=== PATIENT | male | born 1935 | race Caucasian/White ===

== ENCOUNTER 2023-02-23 14:53 | Inpatient (IN) | payer MEDICARE, SELFPAY ==
--- OUTSIDE RECORDS SUMMARY | 2023-02-23 14:55 | XMS_ITS | Continuity of Care Document ---
Author Name Unknown Organization [facility] Address [address] [facility], 3r d Floor, [address] [place] [id number]- Care Team Providers Care Shoulder Puncher Name Role Phone Virginia Snyder Primary Care Physician Encounter [facility] [place] Date(s): 09/21/19 - 01/19/20 [facility] [address], 3[address] Floor, [address] [place] [id number]- [facility] Attending Physician: Kerrie GUNDERSON, Lynn Yu Admitting Physician: Kerrie GUNDERSON, Lynn Yu Referring Physician: Virginia Snyder Allergies, Adverse Reactions, Alerts Substance Reaction Severity Status sulfonamides 1 full blown body rash Activ e Neurontin 2 rash Active Dilaudid 3 vomits violently Active oxyCODONE 4 nasty personality Active 1Rash/Hives/Itch 2 Rash 3 projectile vomiting 4 Personality change Medications amLODIPine 5 mg oral tablet 5 mg, 1, tablet, By Mouth, Daily, # 30 tablet, Refills 0, Maintenance, 03/09/19 22:27:31 EDT Start Date: 03/09/19 Status: Ordered aspirin 81 mg oral delayed release tablet 81 mg, 1, tablet, By Mouth, Daily, # 30 tablet, Refills 0, Maintenance, 03/09/19 22:52:43 EDT Start Date: 03/09/19 Status: Ordered donepezil 5 mg oral tablet 5 mg, 1, tablet, By Mouth, Daily at bedtime, # 30 tablet, Refills 0, Maintenance, 03/09/19 22:27:21EDT Start Date: 03/09/19 Status: Ordered famotidine 20 mg oral tablet 20 mg, 1, tablet, By Mouth, 2 times a day, Refills 0, Maintenance, 06/10/19 10:55:29 EDT Start Date: 06/10/19 Status: Ordered losartan 100 mg oral tablet 1 tablet = 100 mg, By Mouth, Daily, Stop Lisinopril, # 90 tablet, 3 Refills, Maintenance, 06/10/19 11:47:27 EDT, Tablet Start Date: 06/10/19 Stop Date: 06/04/20 Status: Ordered Multivitamin Daily, 0 Refills, Maintenance, 06/10/19 10:54:46 EDT Start Date: 06/10/19 Status: Ordered Social History Social History Type Response Smoking Status Former smoker entered on: 02/25/16 Sex
--- OUTSIDE RECORDS SUMMARY | 2023-02-23 14:55 | XMS_ITS | Continuity of Care Document ---
Author Name Unknown Organization [facility] Address [address] [facility], 3r d Floor, [address] [place] [id number]- Care Team Providers Care Transistor Tester Name Role Phone Virginia Snyder Primary Care Physician Encounter [facility] [place] Date(s): 12/20/19 - 12/30/19 [facility] [address], 3[address], [address] [place] [id number]- [facility] Attending Physician: Boris Vera Admitting Physician: AdmBoris taylor Referring Physician: Admtr, ArYoselyn Allergies, Adverse Reactions, Alerts Substance Reaction Severity Status sulfonamides 1 full blown body rash Activ e oxyCODONE 2 nasty personality Active Neurontin 3 rash Active Dilaudid 4 vomits violently Active 1Rash/Hives/Itch 2 Personality change 3 Rash 4 projectile vomiting Medications amLODIPine 5 mg oral tablet 5 [...]
[2023-02-23 16:00] VITALS: BP 125/60; PULSE 68; RESP 18; TEMP 36.2; O2SAT 98; BMI 27.8
[2023-02-23 18:00] VITALS: BP 109/56; PULSE 62; RESP 16; TEMP 36.6; O2SAT 98
--- NOTE | 2023-02-23 18:28 | PC.NURSE ---
This is the 1st admission for this 88 y.o. male to this [facility]. Pt arrived on unit at 1500 and placed on 5 min safety checks. 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 Nurse to nurse report done with [facility] ED prior to admission, transferred from [facility]. Denies substance issues, per crisis intake has not had etoh/cigarettes x 50 years. No other substances reported. Refused tox screen at [facility]. Receives meds for HTN and states manages this. Restless during admission process, ambulating around treatment room, rubbing counter, trying to open cabinets and crash cart drawers. Responded well to redirection. Later in shift observed attempting to open door at end of dowell by shoving on it. Informed door was broken and moved away from door. Denies SI/HI, denies Ah/VH. Able to express needs well, confusion noted due to Alzheimer's Disease. Denies issues with sleep/appetite. notified of admission here and stated she was not informed by [facility] that pt was being placed here. Pt wears brace on left foot/ankle to assist with ambulation which was ok'd by clinical coordinator; Dr Reaves informed. Pt not utilizing at present time and states he is able to ambulate without.
[2023-02-23] MEDS: Memantine HCl 10 MG TABLET PO (20:48)
[2023-02-23] MEDS: Donepezil HCl 10 MG TABLET PO (20:48)
[2023-02-23] MEDS: traZODone HCL 50 MG TABLET PO (20:49)
[2023-02-23] MEDS: risperiDONE 0.25 MG TABLET PO (20:50)
[2023-02-23] MEDS: Mirtazapine 7.5 MG TABLET PO (20:50)
[2023-02-23] MEDS: QUEtiapine Fumarate 25 MG TABLET 12.5 MG PO (20:55)
[2023-02-24 08:08] VITALS: BP 116/68; PULSE 66; RESP 18; TEMP 36.2; O2SAT 97
[2023-02-24 08:40] LABS: Estimated Average Glucose 97 mg/dL
--- NOTE | 2023-02-24 08:41 | P.HPPS_ITS ---
[facility] Date of Service: 02/24/23 Chief Complaint: F02.81 Sources of Information: patient interviewed, chart reviewed and crisis/core team assessment reviewed Additional Sources of Information: Janice Rao () [phone] [facility] Subjective Notes: Loya Warning and Conditional Voluntary Narrative: Mr. Rao is a 88 year-old male with hx of dementia who was brought to [facility] ED due to increase agitation, innappropiate sexual remarks to neighbor, masturbating in different parts of the home. Per ED note, pt lives with his . In the ED, pt denied suicidal or homicidal ideation. No signs of psychosis. On the unit, pt not oriented to month, situation or year. He reports he is not sure how long he has been here. He reports my put me here. He asks if he can go home soon. Pt explained concerns in terms of impulsive, sexually inappropriate behaviors and combative behaviors at home. He denies SI/HI. He asks again if he is going home today. Further collateral information from who spoke with SOPHIA Reveles- reports pt with memory/cog impairments since 2014. Most recent disinhibited behaviors such sexually inappropriate behaviors towards neighbor, masturbating around the house, sexually inappropriate comments to granddaughter and increasingly more combative. Past Psychiatric History: Inpatient: none prior OP: none Past medication trials: seroquel, sertraline Medical Evaluation Reviewed: Yes EKG on 02/21/2023- Normal sinus rhythm, Qtc 398 ms. CBC unremarkable. CMP- Na 134; K 4.4; BUN 16; Cr 1.1; est. creatinine clearance 46.81. UA neg for leukocytes, glucose, protein [facility] Medical History (Updated 02/24/23 @ 16:03 by Sayra Thorne) Depression Social History: Mikel has been for more than 60 years. Lives in [place] with . They have 2 sons and 2 daughters. Eugenio is a , served in the [employer]. Remote hx of alcohol use but not in several decades per ED notes. Diagnostics Vital Signs (24Hr): Vital Signs - 24 hr 02/23/23 16:00 02/23/23 18:00 02/24/23 08:08 Temperature 97.1 F 97.9 F 97.2 F Pulse Rate 68 62 66 Respiratory Rate 18 16 18 Blood Pressure 125/60 109/56 L 116/68 Pulse Oximetry 98 98 97 Oxygen Delivery Method Room Air Room Air Room Air BMI result Body Mass Index 27.8 Labs 02/24/23 08:14 Labs: Laboratory Results - last 48 hr 02/24/23 08:14 Estimat Average Glucose 97 Hemoglobin A1c % 5.0 Meds/Allergies Meds Home Medications Medication Instructions Recorded Confirmed Type amlodipine 10 mg tablet 10 mg PO DAILY 02/23/23 02/23/23 History donepezil 10 mg tablet 10 mg PO BEDTIME 02/23/23 02/23/23 History losartan 100 mg tablet 100 mg PO DAILY 02/23/23 02/23/23 History memantine 10 mg tablet 10 mg PO BID 02/23/23 02/23/23 History mirtazapine 7.5 mg tablet 7.5 mg PO BEDTIME 02/23/23 02/23/23 History quetiapine 25 mg tablet 12.5 mg PO BID 02/23/23 02/23/23 History risperidone 0.25 mg tablet 0.125 mg PO BID 02/23/23 02/23/23 History risperidone 0.25 mg tablet 0.25 mg PO BEDTIME 02/23/23 02/23/23 History sertraline 50 mg tablet 75 mg PO DAILY 02/23/23 02/23/23 History trazodone 50 mg tablet 50 mg PO BEDTIME 02/23/23 02/23/23 History Allergies Allergies Allergy/AdvReac Type Severity Reaction Status Date / Time Sulfa (Sulfonamide Allergy Severe Anaphylaxis Verified 02/23/23 15:04 Antibiotics) gabapentin [From Neurontin] Allergy Intermediate Rash Verified 02/23/23 15:04 oxycodone AdvReac Severe delirum Verified 02/23/23 15:04 hydromorphone [From Dilaudid] AdvReac Intermediate Vomiting Verified 02/23/23 15:04 Mental Status Exam Mental Status Exam Narrative: Appearance: casually groomed, good hygiene, in NAD Behavior: irritable at times asking to go home Psychomotor: some increased agitation as pt request to leave hospital Speech: clear, normal rate/rhythm/volume, spontaneous TP: goal oriented, wanting to go home TC: no over psychosis or delusions, wanting to go home Mood: fine Affect: irritable SI: denies HI: denies VH/AH: none Delusions: none Memory/cog: alert, not oriented to situation, month, date or year. pending moca Assessment & Plan Assessment & Plan (1) Major neurocognitive disorder due to multiple etiologies with behavioral disturbance: Status: Acute Code(s): F02.818 - Dementia in other diseases classified elsewhere, unspecified severity, with other behavioral disturbance Plan Mr. Rao is a 88 year-old male with hx of dementia of multiple etiologies who was brought to [facility] due to increase combative behaviors, innapropriate sexual advances to neighbor. In the ED, utox is negative. UA not indicative of infection. CBC and CMP grossly unremarkable. Pt not oriented to situation, month, date. He is able to recognize that this is hospital but does not know why he is here. is healthcare proxy- which will be bring copy of HCP form. PLAN 1. Admit to S1, CV, 15 minutes checks for safety 2. Start mood stbailizer for impulsive, disinhibited sexual behaviors- will try trileptal. 3. continue seroquel scheduled as well as prn for agitation 4. aftercare planning 5.obtain collateral information. Patient educated on: diagnosis Reason for continued inpatient stay Substantial Risk for: harm to others and inability to function Statement Statement: I have reviewed the history and physical and performed a pertinent examination on my patient. No changes have occurred unless specified. If the History and Physical was not performed prior to admission, the Hospitalist's service will be consulted for completing the admission physical. Time Spent With Patient Time: Total time managing care of this patient today ____ minutes.
[2023-02-24 09:08] LABS: Alanine Aminotransferase 17 U/L (0-40); Albumin Level 3.8 g/dL (3.5-5.0); Alkaline Phosphatase 87 U/L (39-117); Anion Gap 13 (12-20); Aspartate Amino Transferase 21 U/L (5-37); Bilirubin Total 1.2 mg/dL (0.0-1.0); Blood Urea Nitrogen 20 mg/dL (9-16); Calcium 9.4 mg/dL (8.4-10.2); Carbon Dioxide 23 mmol/L (22-29); Chloride 103 mmol/L (96-108); Cholesterol 138 mg/dL; Creatinine Clr Calc Pharmacy 47.5; Estimated Glomerular Filt Rate 59; Glucose Fasting 87 mg/dL (60-99); HDL Cholesterol 30 mg/dL; LDL Cholesterol Calculated 92 mg/dl; Potassium 4.5 mmol/L (3.3-5.1); Sodium 134 mmol/L (135-145); Triglycerides 84 mg/dL
[2023-02-24 09:25] LABS: Thyroid Stimulating Hormone 1.14 uIU/mL (0.32-4.0)
[2023-02-24 09:26] LABS: Folate 13.7 ng/mL (> or = 4.0); Vitamin B12 755 pg/mL (200-900)
[2023-02-24] MEDS: risperiDONE 0.25 MG TABLET 0.125 MG PO ×2 (09:30→11:43)
[2023-02-24] MEDS: QUEtiapine Fumarate 25 MG TABLET 12.5 MG PO ×2 (09:31→20:10)
[2023-02-24] MEDS: Memantine HCl 10 MG TABLET PO ×2 (09:31→20:10)
[2023-02-24] MEDS: amLODIPine Besylate 10 MG TABLET PO (09:32)
[2023-02-24] MEDS: Losartan Potassium 50 MG TABLET 100 MG PO (09:33)
[2023-02-24] MEDS: Sertraline HCL 25 MG TABLET 75 MG PO (09:33)
--- NOTE | 2023-02-24 10:22 | P.CONHOSP_ITS ---
History of Present Illness Data of Consult Service Date: 02/24/23 Primary Care Provider: HAMMAD Hess HPI 88-year-old man with history of hypertension, depression admitted to [facility] for mental health care. Patient's vital signs are stable, labs within acceptable limits. He has no acute medical complaints at this time Review of Systems Review of Systems: Denies any recent fever chills or decrease in appetite respiratory denies any shortness of breath coverage production cardiovascular denies chest pain gastrointestinal denies any dysphagia abdominal pain nausea vomiting or diarrhea genitourinary denies any dysuria frequency or hematuria musculoskeletal denies any joint pain or swelling neuropsych denies any weakness or seizures all other systems reviewed are negative [facility] Medical History (Updated 02/24/23 @ 11:13 by Lanette Sy NP) Depression Social History Household Members: Spouse and Other Household Members Other:: son Housing: House Do you presently have visiting nurse or other home services: No Patient Tobacco Use Status: Former Tobacco user Tobacco use type: Cigarette Smoked in Last 30 Days: No e-Cigarette/Vaping Use: Never Used Patient Interested in Nicotine Replacement: No Patient Given Instructions on How to Stop Smoking: No Second Hand Smoke Exposure: No Use of substances other than those prescribed or required for medical reasons: No Any prior treatment program specific to substance use: No Have you been hit, kicked, punched, or otherwise hurt by someone within the past year? If so, by whom?: No Do you feel safe in your current relationship?: Yes Is there a partner from a previous relationship who is making you feel unsafe now?: No Are you made to feel afraid or neglected: No Advance Directives: No Advance Directives Information Provided: No Do you have thoughts of harming others: None Do you have a plan to hurt others: No Plan Recently lost weight without trying: No Eating poorly because of decreased appetite: No Nutrition Risks: No Nutritional Risk Poor oral hygiene: No Meds Allergies Allergy/AdvReac Type Severity Reaction Status Date / Time Sulfa (Sulfonamide Allergy Severe Anaphylaxis Verified 02/23/23 15:04 Antibiotics) gabapentin [From Neurontin] Allergy Intermediate Rash Verified 02/23/23 15:04 oxycodone AdvReac Severe delirum Verified 02/23/23 15:04 hydromorphone [From Dilaudid] AdvReac Intermediate Vomiting Verified 02/23/23 15:04 Active Medications: Current Medications Acetaminophen (Acetaminophen 325 Mg Tablet) 650 mg PO Q6H PRN PRN Reason: Headache/Pain Mild Scale (1-3) Al Hydroxide/Mg Hydroxide (Magnesium Hydrox/Alum Hydrox 30 Ml Oral.Susp) 30 ml PO Q6H PRN PRN Reason: Heartburn/Nausea Amlodipine Besylate (Amlodipine Besylate 10 Mg Tablet) 10 mg PO DAILY [facility]; Protocol Last Admin: 02/24/23 09:32 Dose: 10 mg Donepezil HCl (Donepezil Hcl 10 Mg Tablet) 10 mg PO BEDTIME [facility] Last Admin: 02/23/23 20:48 Dose: 10 mg Hydroxyzine HCl (Hydroxyzine Hcl 25 Mg Tablet) 25 mg PO Q6H PRN PRN Reason: Anxiety Losartan Potassium (Losartan Potassium 50 Mg Tablet) 100 mg PO DAILY [facility]; Protocol Last Admin: 02/24/23 09:33 Dose: 100 mg Magnesium Hydroxide (Milk Of Magnesia 30 Ml Oral.Susp) 30 ml PO DAILY PRN PRN Reason: Constipation Memantine (Memantine Hcl 10 Mg Tablet) 10 mg PO BID [facility] Last Admin: 02/24/23 09:31 Dose: 10 mg Mirtazapine (Mirtazapine 7.5 Mg Tablet) 7.5 mg PO BEDTIME [facility] Last Admin: 02/23/23 20:50 Dose: 7.5 mg Quetiapine Fumarate (Quetiapine Fumarate 25 Mg Tablet) 25 mg PO Q6H PRN PRN Reason: agitation Quetiapine Fumarate (Quetiapine Fumarate 25 Mg Tablet) 12.5 mg PO BID [facility] Last Admin: 02/24/23 09:31 Dose: 12.5 mg Risperidone (Risperidone 0.25 Mg Tablet) 0.125 mg PO BID@0800,1200 [facility] Last Admin: 02/24/23 09:30 Dose: 0.125 mg Risperidone (Risperidone 0.25 Mg Tablet) 0.25 mg PO BEDTIME [facility] Last Admin: 02/23/23 20:50 Dose: 0.25 mg Sertraline HCl (Sertraline Hcl 25 Mg Tablet) 75 mg PO DAILY [facility] Last Admin: 02/24/23 09:33 Dose: 75 mg Trazodone HCl (Trazodone Hcl 50 Mg Tablet) 50 mg PO BEDTIME PRN PRN Reason: Insomnia Trazodone HCl (Trazodone Hcl 50 Mg Tablet) 50 mg PO BEDTIME [facility] Last Admin: 02/23/23 20:49 Dose: 50 mg Home Medications Medication Instructions Recorded Confirmed Last Taken Type amlodipine 10 mg tablet 10 mg PO DAILY 02/23/23 02/23/23 Unknown History donepezil 10 mg tablet 10 mg PO BEDTIME 02/23/23 02/23/23 Unknown History losartan 100 mg tablet 100 mg PO DAILY 02/23/23 02/23/23 Unknown History memantine 10 mg tablet 10 mg PO BID 02/23/23 02/23/23 Unknown History mirtazapine 7.5 mg tablet 7.5 mg PO BEDTIME 02/23/23 02/23/23 Unknown History quetiapine 25 mg tablet 12.5 mg PO BID 02/23/23 02/23/23 Unknown History risperidone 0.25 mg tablet 0.125 mg PO BID 02/23/23 02/23/23 Unknown History risperidone 0.25 mg tablet 0.25 mg PO BEDTIME 02/23/23 02/23/23 Unknown History sertraline 50 mg tablet 75 mg PO DAILY 02/23/23 02/23/23 Unknown History trazodone 50 mg tablet 50 mg PO BEDTIME 02/23/23 02/23/23 Unknown History Physical Exam 2 Vital Signs and Narrative: Vital Signs: Last Vital Signs Temp 97.2 F 02/24/23 08:08 Pulse 66 02/24/23 08:08 Resp 18 02/24/23 08:08 BP 116/68 02/24/23 08:08 Pulse Ox 97 02/24/23 08:08 O2 Del Method Room Air 02/24/23 08:08 BMI result Body Mass Index 27.8 Appearing in no acute distress head is normocephalic atraumatic eyes pupils are PERRLA sclera is anicteric mouth throat mucous membranes are intact and moist neck is supple no lymphadenopathy, no JVD noted lung sounds are clear to auscultation heart regular rate rhythm, clear S1, S2 positive bowel sounds, abdomen is soft, nontender neuro patient is alert x3, no focal deficits Cranial nerves 2-12 are grossly intact without focal deficits Results Labs 02/24/23 08:14 Labs: Laboratory Results - last 24 hr 02/24/23 02/24/23 02/24/23 08:14 08:14 08:14 Anion Gap 13 Estim Creat Clear Calc 47.5 Estimated GFR 59 Fasting Glucose 87 Estimat Average Glucose 97 Hemoglobin A1c % 5.0 Calcium 9.4 Total Bilirubin 1.2 H AST 21 ALT 17 Alkaline Phosphatase 87 Total Protein 7.0 Albumin 3.8 Triglycerides 84 Cholesterol 138 LDL Cholesterol, Calc 92 HDL Cholesterol 30 Vitamin B12 755 Folate 13.7 TSH 1.14 Assessment and Plan (1) H/O: HTN (hypertension): Status: Acute Plan 88-year-old man admitted to [facility] for mental health treatment Mental Health Management as per psychiatric team Hypertension Continue home medications Monitor blood pressure Patient has no acute medical complaints at this time Time Spent With Patient Time: Total time managing care of this patient today ____ minutes.
[2023-02-24] MEDS: OXcarbazepine 300 MG TABLET PO ×2 (14:33→20:11)
[2023-02-24 19:30] VITALS: BP 107/53; PULSE 62; RESP 16; TEMP 36.5; O2SAT 96
[2023-02-24] MEDS: Donepezil HCl 10 MG TABLET PO (20:10)
[2023-02-24] MEDS: traZODone HCL 50 MG TABLET PO (20:10)
[2023-02-24] MEDS: Mirtazapine 7.5 MG TABLET PO (20:10)
[2023-02-25 08:15] VITALS: BP 122/59; PULSE 70; RESP 18; TEMP 35.9; O2SAT 99
[2023-02-25] MEDS: QUEtiapine Fumarate 25 MG TABLET 12.5 MG PO (08:21)
[2023-02-25] MEDS: amLODIPine Besylate 10 MG TABLET PO (08:22)
[2023-02-25] MEDS: Memantine HCl 10 MG TABLET PO ×2 (08:22→20:35)
[2023-02-25] MEDS: OXcarbazepine 300 MG TABLET PO ×2 (08:22→20:35)
[2023-02-25] MEDS: Losartan Potassium 50 MG TABLET 100 MG PO (08:22)
[2023-02-25] MEDS: Sertraline HCL 25 MG TABLET 75 MG PO (08:23)
[2023-02-25] MEDS: QUEtiapine Fumarate 25 MG TABLET PO ×2 (14:40→20:34)
--- NOTE | 2023-02-25 16:41 | P.PNPSI_ITS ---
Subjective Subjective Date of Service: 02/25/23 Reason For Visit: F02.81 Subjective Notes: Conditional Voluntary Interim History: Pt slept through the night. Pt was up, visible most of the morning. Innapropriate exposure to female peer. Pt not oriented to place or situation. Pt denies any pain or physical concerns. he denies SI/HI. Medication Compliance: Yes Review of Systems Review of Systems Denies any recent fever chills or decrease in appetite respiratory denies any shortness of breath coverage production cardiovascular denies chest pain gastrointestinal denies any dysphagia abdominal pain nausea vomiting or diarrhea genitourinary denies any dysuria frequency or hematuria musculoskeletal denies any joint pain or swelling neuropsych denies any weakness or seizures all other systems reviewed are negative Yes Unobtainable due to mental status Mental Status Exam Mental Status Exam Narrative: Appearance: casually groomed, good hygiene, in NAD Behavior: irritable at times asking to go home Psychomotor: some increased agitation as pt request to leave hospital Speech: clear, normal rate/rhythm/volume, spontaneous TP: goal oriented, wanting to go home TC: no over psychosis or delusions, wanting to go home Mood: fine Affect: irritable SI: denies HI: denies VH/AH: none Delusions: none Memory/cog: alert, not oriented to situation, month, date or year. pending moca Diagnostics Vital Signs (24Hr): Vital Signs - 24 hr 02/24/23 19:30 02/25/23 08:15 Temperature 97.7 F 96.6 F L Pulse Rate 62 70 Respiratory Rate 16 18 Blood Pressure 107/53 L 122/59 L Pulse Oximetry 96 99 Oxygen Delivery Method Room Air Room Air BMI result Body Mass Index 27.8 Labs 02/24/23 08:14 Labs: Laboratory Results - last 48 hr 02/24/23 02/24/23 02/24/23 08:14 08:14 08:14 Sodium 134 L Potassium 4.5 Chloride 103 Carbon Dioxide 23 Anion Gap 13 BUN 20 H Creatinine 1.17 Estim Creat Clear Calc 47.5 Estimated GFR 59 Fasting Glucose 87 Estimat Average Glucose 97 Hemoglobin A1c % 5.0 Calcium 9.4 Total Bilirubin 1.2 H AST 21 ALT 17 Alkaline Phosphatase 87 Total Protein 7.0 Albumin 3.8 Triglycerides 84 Cholesterol 138 LDL Cholesterol, Calc 92 HDL Cholesterol 30 Vitamin B12 755 Folate 13.7 TSH 1.14 Medications Medications Current Medications Acetaminophen (Acetaminophen 325 Mg Tablet) 650 mg PO Q6H PRN PRN Reason: Headache/Pain Mild Scale (1-3) Al Hydroxide/Mg Hydroxide (Magnesium Hydrox/Alum Hydrox 30 Ml Oral.Susp) 30 ml PO Q6H PRN PRN Reason: Heartburn/Nausea Amlodipine Besylate (Amlodipine Besylate 10 Mg Tablet) 10 mg PO DAILY [facility]; Protocol Last Admin: 02/25/23 08:22 Dose: 10 mg Donepezil HCl (Donepezil Hcl 10 Mg Tablet) 10 mg PO BEDTIME [facility] Last Admin: 02/24/23 20:10 Dose: 10 mg Hydroxyzine HCl (Hydroxyzine Hcl 25 Mg Tablet) 25 mg PO Q6H PRN PRN Reason: Anxiety Losartan Potassium (Losartan Potassium 50 Mg Tablet) 100 mg PO DAILY [facility]; Protocol Last Admin: 02/25/23 08:22 Dose: 100 mg Magnesium Hydroxide (Milk Of Magnesia 30 Ml Oral.Susp) 30 ml PO DAILY PRN PRN Reason: Constipation Memantine (Memantine Hcl 10 Mg Tablet) 10 mg PO BID [facility] Last Admin: 02/25/23 08:22 Dose: 10 mg Mirtazapine (Mirtazapine 7.5 Mg Tablet) 7.5 mg PO BEDTIME [facility] Last Admin: 02/24/23 20:10 Dose: 7.5 mg Oxcarbazepine (Oxcarbazepine 300 Mg Tablet) 300 mg PO BID [facility] Last Admin: 02/25/23 08:22 Dose: 300 mg Quetiapine Fumarate (Quetiapine Fumarate 25 Mg Tablet) 25 mg PO Q6H PRN PRN Reason: agitation Quetiapine Fumarate (Quetiapine Fumarate 25 Mg Tablet) 25 mg PO TID [facility] Last Admin: 02/25/23 14:40 Dose: 25 mg Sertraline HCl (Sertraline Hcl 25 Mg Tablet) 75 mg PO DAILY [facility] Last Admin: 02/25/23 08:23 Dose: 75 mg Trazodone HCl (Trazodone Hcl 50 Mg Tablet) 50 mg PO BEDTIME PRN PRN Reason: Insomnia Trazodone HCl (Trazodone Hcl 50 Mg Tablet) 50 mg PO BEDTIME [facility] Last Admin: 02/24/23 20:10 Dose: 50 mg Allergies Allergies Allergy/AdvReac Type Severity Reaction Status Date / Time Sulfa (Sulfonamide Allergy Severe Anaphylaxis Verified 02/23/23 15:04 Antibiotics) gabapentin [From Neurontin] Allergy Intermediate Rash Verified 02/23/23 15:04 oxycodone AdvReac Severe delirum Verified 02/23/23 15:04 hydromorphone [From Dilaudid] AdvReac Intermediate Vomiting Verified 02/23/23 15:04 Assessment & Plan Assessment & Plan (1) Major neurocognitive disorder due to multiple etiologies with behavioral d isturbance: Status: Acute Code(s): F02.818 - Dementia in other diseases classified elsewhere, unspecified severity, with other behavioral disturbance Plan Mr. Rao is a 88 year-old male with hx of dementia of multiple etiologies who was brought to [facility] due to increase combative behaviors, innapropriate sexual advances to neighbor. In the ED, utox is negative. UA not indicative of infection. CBC and CMP grossly unremarkable. Pt not oriented to situation, month, date. He is able to recognize that this is hospital but does not know why he is here. is healthcare proxy- which will be bring copy of HCP form. PLAN 1. Admit to S1, CV, 15 minutes checks for safety 2. Start mood stbailizer for impulsive, disinhibited sexual behaviors- will try trileptal. 3. continue seroquel scheduled as well as prn for agitation 4. aftercare planning 5.obtain collateral information. 02/25- increase seroquel to 25mg po TID- monitor sedation, gait. continue trileptal- will check Na. Reason for continued inpatient stay Substantial Risk for: inability to function Time Spent With Patient Time: Total time managing care of this patient today ____ minutes.
[2023-02-25 18:00] VITALS: BP 120/57; PULSE 70; RESP 20; TEMP 36.1; O2SAT 98
[2023-02-25] MEDS: traZODone HCL 50 MG TABLET PO (20:34)
[2023-02-25] MEDS: Mirtazapine 7.5 MG TABLET PO (20:35)
[2023-02-25] MEDS: Donepezil HCl 10 MG TABLET PO (20:35)
[2023-02-26 07:00] VITALS: BMI 22.9
[2023-02-26 09:45] VITALS: BP 127/69; PULSE 65; RESP 18; TEMP 36.1; O2SAT 98
[2023-02-26] MEDS: Sertraline HCL 25 MG TABLET 75 MG PO (10:34)
[2023-02-26] MEDS: Memantine HCl 10 MG TABLET PO ×2 (10:35→20:46)
[2023-02-26] MEDS: Losartan Potassium 50 MG TABLET 100 MG PO (10:36)
[2023-02-26] MEDS: OXcarbazepine 300 MG TABLET PO ×2 (10:37→20:46)
[2023-02-26] MEDS: amLODIPine Besylate 10 MG TABLET PO (10:37)
[2023-02-26] MEDS: QUEtiapine Fumarate 25 MG TABLET PO ×3 (10:38→20:46)
--- NOTE | 2023-02-26 12:35 | HO.PSYCHPN ---
Subjective Subjective Date of Service: 02/26/23 Reason For Visit: F02.81 Subjective Notes: Conditional Voluntary Interim History: Per nursing, pt slept through the night. He has been taking medications as prescribed. 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 No attempts to touch or expose himself as he did yesterday to peer or in the community. Pt not oriented to place, situation. He has been more visible and has attended groups. No other behavioral concerns. Medication Compliance: Yes Side effects from medications: No Review of Systems Review of Systems Denies any recent fever chills or decrease in appetite respiratory denies any shortness of breath coverage production cardiovascular denies chest pain gastrointestinal denies any dysphagia abdominal pain nausea vomiting or diarrhea genitourinary denies any dysuria frequency or hematuria musculoskeletal denies any joint pain or swelling neuropsych denies any weakness or seizures all other systems reviewed are negative Yes Unobtainable due to mental status Mental Status Exam Mental Status Exam Narrative: Appearance: casually groomed, good hygiene, in NAD Behavior: irritable at times asking to go home Psychomotor: some increased agitation as pt request to leave hospital Speech: clear, normal rate/rhythm/volume, spontaneous TP: goal oriented, wanting to go home TC: no over psychosis or delusions, wanting to go home Mood: fine Affect: irritable SI: denies HI: denies VH/AH: none Delusions: none Memory/cog: alert, not oriented to situation, month, date or year. pending moca Diagnostics Vital Signs (24Hr): Vital Signs - 24 hr 02/25/23 18:00 02/26/23 09:45 Temperature 96.9 F 97 F Pulse Rate 70 65 Respiratory Rate 20 18 Blood Pressure 120/57 L 127/69 Pulse Oximetry 98 98 Oxygen Delivery Method Room Air Room Air BMI result Body Mass Index 22.9 Labs 02/24/23 08:14 Medications Medications Current Medications Acetaminophen (Acetaminophen 325 Mg Tablet) 650 mg PO Q6H PRN PRN Reason: Headache/Pain Mild Scale (1-3) Al Hydroxide/Mg Hydroxide (Magnesium Hydrox/Alum Hydrox 30 Ml Oral.Susp) 30 ml PO Q6H PRN PRN Reason: Heartburn/Nausea Amlodipine Besylate (Amlodipine Besylate 10 Mg Tablet) 10 mg PO DAILY [facility]; Protocol Last Admin: 02/26/23 10:37 Dose: 10 mg Donepezil HCl (Donepezil Hcl 10 Mg Tablet) 10 mg PO BEDTIME [facility] Last Admin: 02/25/23 20:35 Dose: 10 mg Hydroxyzine HCl (Hydroxyzine Hcl 25 Mg Tablet) 25 mg PO Q6H PRN PRN Reason: Anxiety Losartan Potassium (Losartan Potassium 50 Mg Tablet) 100 mg PO DAILY [facility]; Protocol Last Admin: 02/26/23 10:36 Dose: 100 mg Magnesium Hydroxide (Milk Of Magnesia 30 Ml Oral.Susp) 30 ml PO DAILY PRN PRN Reason: Constipation Memantine (Memantine Hcl 10 Mg Tablet) 10 mg PO BID [facility] Last Admin: 02/26/23 10:35 Dose: 10 mg Mirtazapine (Mirtazapine 7.5 Mg Tablet) 7.5 mg PO BEDTIME [facility] Last Admin: 02/25/23 20:35 Dose: 7.5 mg Oxcarbazepine (Oxcarbazepine 300 Mg Tablet) 300 mg PO BID [facility] Last Admin: 02/26/23 10:37 Dose: 300 mg Quetiapine Fumarate (Quetiapine Fumarate 25 Mg Tablet) 25 mg PO Q6H PRN PRN Reason: agitation Quetiapine Fumarate (Quetiapine Fumarate 25 Mg Tablet) 25 mg PO TID [facility] Last Admin: 02/26/23 10:38 Dose: 25 mg Sertraline HCl (Sertraline Hcl 25 Mg Tablet) 75 mg PO DAILY [facility] Last Admin: 02/26/23 10:34 Dose: 75 mg Trazodone HCl (Trazodone Hcl 50 Mg Tablet) 50 mg PO BEDTIME PRN PRN Reason: Insomnia Trazodone HCl (Trazodone Hcl 50 Mg Tablet) 50 mg PO BEDTIME [facility] Last Admin: 02/25/23 20:34 Dose: 50 mg Allergies Allergies Allergy/AdvReac Type Severity Reaction Status Date / Time Sulfa (Sulfonamide Allergy Severe Anaphylaxis Verified 02/23/23 15:04 Antibiotics) gabapentin [From Neurontin] Allergy Intermediate Rash Verified 02/23/23 15:04 oxycodone AdvReac Severe delirum Verified 02/23/23 15:04 hydromorphone [From Dilaudid] AdvReac Intermediate Vomiting Verified 02/23/23 15:04 Assessment & Plan Assessment & Plan (1) Major neurocognitive disorder due to multiple etiologies with behavioral disturbance: Status: Acute Code(s): F02.818 - Dementia in other diseases classified elsewhere, unspecified severity, with other behavioral disturbance Plan Mr. Rao is a 88 year-old male with hx of dementia of multiple etiologies who was brought to [facility] due to increase combative behaviors, innapropriate sexual advances to neighbor. In the ED, utox is negative. UA not indicative of infection. CBC and CMP grossly unremarkable. Pt not oriented to situation, month, date. He is able to recognize that this is hospital but does not know why he is here. is healthcare proxy- which will be bring copy of HCP form. PLAN 1. Admit to S1, CV, 15 minutes checks for safety 2. Start mood stbailizer for impulsive, disinhibited sexual behaviors- will try trileptal. 3. continue seroquel scheduled as well as prn for agitation 4. aftercare planning 5.obtain collateral information. 02/25- increase seroquel to 25mg po TID- monitor sedation, gait. continue trileptal- will check Na. 02/26 continue current medications, monitor for over sedation and therapeutic benefit. Patient educated on: diagnosis and medication risk/benefits Guardian/Caregiver educated on: diagnosis Informed Consent: understands Reason for continued inpatient stay Substantial Risk for: harm to others and inability to function Time Spent With Patient Time: Total time managing care of this patient today ___30_ minutes.
[2023-02-26 18:00] VITALS: BP 124/65; PULSE 71; RESP 18; TEMP 36.3; O2SAT 97
[2023-02-26] MEDS: traZODone HCL 50 MG TABLET PO (20:46)
[2023-02-26] MEDS: Donepezil HCl 10 MG TABLET PO (20:46)
[2023-02-26] MEDS: Mirtazapine 7.5 MG TABLET PO (20:46)
--- NOTE | 2023-02-27 05:06 | PC.NURSE ---
Patient in bed asleep at 23:00. Patient up OOB to the [facility]ieux for a glass of milk at 3 am. Denied insomnia or anxiety at that time. Abnormal gait noted. Patient ambulated back to bed with 1 standby assist and holding bedrail and slept the rest of the night without complaint.
[2023-02-27 07:30] VITALS: BP 176/73; PULSE 72; RESP 18; TEMP 36.5; O2SAT 99
[2023-02-27] MEDS: QUEtiapine Fumarate 25 MG TABLET PO ×3 (08:05→20:41)
[2023-02-27] MEDS: Sertraline HCL 25 MG TABLET 75 MG PO (08:05)
[2023-02-27] MEDS: Memantine HCl 10 MG TABLET PO ×2 (08:05→20:41)
[2023-02-27] MEDS: amLODIPine Besylate 10 MG TABLET PO (08:06)
[2023-02-27] MEDS: Losartan Potassium 50 MG TABLET 100 MG PO (08:06)
[2023-02-27] MEDS: OXcarbazepine 300 MG TABLET PO ×2 (08:32→20:40)
[2023-02-27 18:00] VITALS: BP 160/74; PULSE 64; RESP 16; TEMP 36.6; O2SAT 95
[2023-02-27] MEDS: Donepezil HCl 10 MG TABLET PO (20:39)
[2023-02-27] MEDS: Mirtazapine 7.5 MG TABLET PO (20:40)
[2023-02-27] MEDS: hydrOXYzine HCL 25 MG TABLET PO (20:41)
--- NOTE | 2023-02-27 22:05 | P.PNPSI_ITS ---
Subjective Subjective Date of Service: 02/27/23 Reason For Visit: F02.81 Subjective Notes: Conditional Voluntary Interim History: Pt reports he is doing well. He reports he is doing well. He denies any physical concerns. Less irritable and combative. Family meeting to discussed medication changes and treatment. Per nursing, no aggression or inappropriate behaviors with females. Medication Compliance: Yes Review of Systems Review of Systems Denies any recent fever chills or decrease in appetite respiratory denies any shortness of breath coverage production cardiovascular denies chest pain gastrointestinal denies any dysphagia abdominal pain nausea vomiting or diarrhea genitourinary denies any dysuria frequency or hematuria musculoskeletal denies any joint pain or swelling neuropsych denies any weakness or seizures all other systems reviewed are negative Yes Unobtainable due to mental status Mental Status Exam Mental Status Exam Narrative: Appearance: casually groomed, good hygiene, in NAD Behavior: irritable at times asking to go home Psychomotor: some increased agitation as pt request to leave hospital Speech: clear, normal rate/rhythm/volume, spontaneous TP: goal oriented, wanting to go home TC: no over psychosis or delusions, wanting to go home Mood: fine Affect: irritable SI: denies HI: denies VH/AH: none Delusions: none Memory/cog: alert, not oriented to situation, month, date or year. pending moca Diagnostics Vital Signs (24Hr): Vital Signs - 24 hr 02/27/23 07:30 Temperature 97.7 F Pulse Rate 72 Respiratory Rate 18 Blood Pressure 176/73 H Pulse Oximetry 99 Oxygen Delivery Method Room Air BMI result Body Mass Index 22.9 Labs 02/24/23 08:14 Medications Medications Current Medications Acetaminophen (Acetaminophen 325 Mg Tablet) 650 mg PO Q6H PRN PRN Reason: Headache/Pain Mild Scale (1-3) Al Hydroxide/Mg Hydroxide (Magnesium Hydrox/Alum Hydrox 30 Ml Oral.Susp) 30 ml PO Q6H PRN PRN Reason: Heartburn/Nausea Amlodipine Besylate (Amlodipine Besylate 10 Mg Tablet) 10 mg PO DAILY [facility]; Protocol Last Admin: 02/27/23 08:06 Dose: 10 mg Donepezil HCl (Donepezil Hcl 10 Mg Tablet) 10 mg PO BEDTIME [facility] Last Admin: 02/27/23 20:39 Dose: 10 mg Hydroxyzine HCl (Hydroxyzine Hcl 25 Mg Tablet) 25 mg PO Q6H PRN PRN Reason: Anxiety Last Admin: 02/27/23 20:41 Dose: 25 mg Losartan Potassium (Losartan Potassium 50 Mg Tablet) 100 mg PO DAILY [facility]; Protocol Last Admin: 02/27/23 08:06 Dose: 100 mg Magnesium Hydroxide (Milk Of Magnesia 30 Ml Oral.Susp) 30 ml PO DAILY PRN PRN Reason: Constipation Memantine (Memantine Hcl 10 Mg Tablet) 10 mg PO BID [facility] Last Admin: 02/27/23 20:41 Dose: 10 mg Mirtazapine (Mirtazapine 7.5 Mg Tablet) 7.5 mg PO BEDTIME [facility] Last Admin: 02/27/23 20:40 Dose: 7.5 mg Oxcarbazepine (Oxcarbazepine 300 Mg Tablet) 300 mg PO BID [facility] Last Admin: 02/27/23 20:40 Dose: 300 mg Quetiapine Fumarate (Quetiapine Fumarate 25 Mg Tablet) 25 mg PO Q6H PRN PRN Reason: agitation Quetiapine Fumarate (Quetiapine Fumarate 25 Mg Tablet) 25 mg PO TID [facility] Last Admin: 02/27/23 20:41 Dose: 25 mg Sertraline HCl (Sertraline Hcl 25 Mg Tablet) 75 mg PO DAILY [facility] Last Admin: 02/27/23 08:05 Dose: 75 mg Trazodone HCl (Trazodone Hcl 50 Mg Tablet) 50 mg PO BEDTIME PRN PRN Reason: Insomnia Trazodone HCl (Trazodone Hcl 50 Mg Tablet) 50 mg PO BEDTIME [facility] Last Admin: 02/26/23 20:46 Dose: 50 mg Allergies Allergies Allergy/AdvReac Type Severity Reaction Status Date / Time Sulfa (Sulfonamide Allergy Severe Anaphylaxis Verified 02/23/23 15:04 Antibiotics) gabapentin [From Neurontin] Allergy Intermediate Rash Verified 02/23/23 15:04 oxycodone AdvReac Severe delirum Verified 02/23/23 15:04 hydromorphone [From Dilaudid] AdvReac Intermediate Vomiting Verified 02/23/23 15:04 Assessment & Plan Assessment & Plan (1) Major neurocognitive disorder due to multiple etiologies with behavioral disturbance: Status: Acute Code(s): F02.818 - Dementia in other diseases classified elsewhere, unspecified severity, with other behavioral disturbance Plan Mr. Rao is a 88 year-old male with hx of dementia of multiple etiologies who was brought to [facility] due to increase combative behaviors, innapropriate sexual advances to neighbor. In the ED, utox is negative. UA not indicative of infection. CBC and CMP grossly unremarkable. Pt not oriented to situation, month, date. He is able to recognize that this is hospital but does not know why he is here. is healthcare proxy- which will be bring copy of HCP form. PLAN 1. Admit to S1, CV, 15 minutes checks for safety 2. Start mood stbailizer for impulsive, disinhibited sexual behaviors- will try trileptal. 3. continue seroquel scheduled as well as prn for agitation 4. aftercare planning 5.obtain collateral information. 02/25- increase seroquel to 25mg po TID- monitor sedation, gait. continue trileptal- will check Na. 02/26 continue current medications, monitor for over sedation and therapeutic benefit. 02/27 continue tx. can consider increasing seroquel to 50mg po TID. Reason for continued inpatient stay Substantial Risk for: inability to function Time Spent With Patient Time: Total time managing care of this patient today ____ minutes.
[2023-02-27] MEDS: traZODone HCL 50 MG TABLET PO (23:37)
[2023-02-28 08:22] VITALS: BP 158/72; PULSE 63; RESP 18; TEMP 36.4; O2SAT 97
[2023-02-28] MEDS: Sertraline HCL 25 MG TABLET 75 MG PO (09:07)
[2023-02-28] MEDS: Losartan Potassium 50 MG TABLET 100 MG PO (09:08)
[2023-02-28] MEDS: QUEtiapine Fumarate 25 MG TABLET PO ×3 (09:08→20:32)
[2023-02-28] MEDS: amLODIPine Besylate 10 MG TABLET PO (09:08)
[2023-02-28] MEDS: Memantine HCl 10 MG TABLET PO ×2 (09:08→20:31)
[2023-02-28] MEDS: OXcarbazepine 300 MG TABLET PO ×2 (09:09→20:32)
--- NOTE | 2023-02-28 11:40 | P.PNPSI_ITS ---
Subjective Subjective Date of Service: 02/28/23 Reason For Visit: F02.81 Interim History: Pt reports he is doing well. He is somewhat irritable, guarded and suspicious. Isolative. He reports he is doing well. He denies any physical concerns. No agitated episodes. Per nursing, no aggression or inappropriate behaviors with females. Review of Systems Review of Systems Denies any recent fever chills or decrease in appetite respiratory denies any shortness of breath coverage production cardiovascular denies chest pain gastrointestinal denies any dysphagia abdominal pain nausea vomiting or diarrhea genitourinary denies any dysuria frequency or hematuria musculoskeletal denies any joint pain or swelling neuropsych denies any weakness or seizures all other systems reviewed are negative Yes Unobtainable due to mental status Mental Status Exam Mental Status Exam Narrative: Appearance: casually groomed, good hygiene, in NAD Behavior: irritable at times asking to go home Psychomotor: some increased agitation as pt request to leave hospital Speech: clear, normal rate/rhythm/volume, spontaneous TP: goal oriented, wanting to go home TC: no over psychosis or delusions, wanting to go home Mood: fine Affect: irritable SI: denies HI: denies VH/AH: none Delusions: none Memory/cog: alert, not oriented to situation, month, date or year. pending moca Diagnostics Vital Signs (24Hr): Vital Signs - 24 hr 02/27/23 18:00 02/28/23 08:22 Temperature 97.9 F 97.6 F Pulse Rate 64 63 Respiratory Rate 16 18 Blood Pressure 160/74 H 158/72 H Pulse Oximetry 95 97 Oxygen Delivery Method Room Air Room Air BMI result Body Mass Index 22.9 Labs 02/24/23 08:14 Medications Medications Current Medications Acetaminophen (Acetaminophen 325 Mg Tablet) 650 mg PO Q6H PRN PRN Reason: Headache/Pain Mild Scale (1-3) Al Hydroxide/Mg Hydroxide (Magnesium Hydrox/Alum Hydrox 30 Ml Oral.Susp) 30 ml PO Q6H PRN PRN Reason: Heartburn/Nausea Amlodipine Besylate (Amlodipine Besylate 10 Mg Tablet) 10 mg PO DAILY [facility]; Protocol Last Admin: 02/28/23 09:08 Dose: 10 mg Donepezil HCl (Donepezil Hcl 10 Mg Tablet) 10 mg PO BEDTIME [facility] Last Admin: 02/27/23 20:39 Dose: 10 mg Hydroxyzine HCl (Hydroxyzine Hcl 25 Mg Tablet) 25 mg PO Q6H PRN PRN Reason: Anxiety Last Admin: 02/27/23 20:41 Dose: 25 mg Losartan Potassium (Losartan Potassium 50 Mg Tablet) 100 mg PO DAILY [facility]; Protocol Last Admin: 02/28/23 09:08 Dose: 100 mg Magnesium Hydroxide (Milk Of Magnesia 30 Ml Oral.Susp) 30 ml PO DAILY PRN PRN Reason: Constipation Memantine (Memantine Hcl 10 Mg Tablet) 10 mg PO BID [facility] Last Admin: 02/28/23 09:08 Dose: 10 mg Mirtazapine (Mirtazapine 7.5 Mg Tablet) 7.5 mg PO BEDTIME [facility] Last Admin: 02/27/23 20:40 Dose: 7.5 mg Oxcarbazepine (Oxcarbazepine 300 Mg Tablet) 300 mg PO BID [facility] Last Admin: 02/28/23 09:09 Dose: 300 mg Quetiapine Fumarate (Quetiapine Fumarate 25 Mg Tablet) 25 mg PO Q6H PRN PRN Reason: agitation Quetiapine Fumarate (Quetiapine Fumarate 25 Mg Tablet) 25 mg PO TID [facility] Last Admin: 02/28/23 09:08 Dose: 25 mg Sertraline HCl (Sertraline Hcl 25 Mg Tablet) 75 mg PO DAILY [facility] Last Admin: 02/28/23 09:07 Dose: 75 mg Trazodone HCl (Trazodone Hcl 50 Mg Tablet) 50 mg PO BEDTIME PRN PRN Reason: Insomnia Trazodone HCl (Trazodone Hcl 50 Mg Tablet) 50 mg PO BEDTIME [facility] Last Admin: 02/27/23 23:37 Dose: 50 mg Allergies Allergies Allergy/AdvReac Type Severity Reaction Status Date / Time Sulfa (Sulfonamide Allergy Severe Anaphylaxis Verified 02/23/23 15:04 Antibiotics) gabapentin [From Neurontin] Allergy Intermediate Rash Verified 02/23/23 15:04 oxycodone AdvReac Severe delirum Verified 02/23/23 15:04 hydromorphone [From Dilaudid] AdvReac Intermediate Vomiting Verified 02/23/23 15:04 Assessment & Plan Assessment & Plan (1) Major neurocognitive disorder due to multiple etiologies with behavioral disturbance: Status: Acute Code(s): F02.818 - Dementia in other diseases classified elsewhere, unspecified severity, with other behavioral disturbance Plan Mr. Rao is a 88 year-old male with hx of dementia of multiple etiologies who was brought to [facility] due to increase combative behaviors, innapropriate sexual advances to neighbor. In the ED, utox is negative. UA not indicative of infection. CBC and CMP grossly unremarkable. Pt not oriented to situation, month, date. He is able to recognize that this is hospital but does not know why he is here. is healthcare proxy- which will be bring copy of HCP form. PLAN 1. Admit to S1, CV, 15 minutes checks for safety 2. Start mood stbailizer for impulsive, disinhibited sexual behaviors- will try trileptal. 3. continue seroquel scheduled as well as prn for agitation 4. aftercare planning 5.obtain collateral information. 02/25- increase seroquel to 25mg po TID- monitor sedation, gait. continue trileptal- will check Na. 02/26 continue current medications, monitor for over sedation and therapeutic benefit. 02/27 continue tx. can consider increasing seroquel to 50mg po TID. 02/28: Consider increase Seroquel. Reason for continued inpatient stay Substantial Risk for: harm to others, inability to function and rapid decompensation Time Spent With Patient Time: Total time managing care of this patient today ____ minutes.
[2023-02-28 18:00] VITALS: BP 155/69; PULSE 67; RESP 20; TEMP 36.2; O2SAT 98
[2023-02-28] MEDS: Mirtazapine 7.5 MG TABLET PO (20:31)
[2023-02-28] MEDS: Donepezil HCl 10 MG TABLET PO (20:31)
[2023-02-28] MEDS: traZODone HCL 50 MG TABLET PO (20:32)
[2023-03-01 08:32] VITALS: BP 118/58; PULSE 61; RESP 18; TEMP 36.3; O2SAT 96
[2023-03-01] MEDS: amLODIPine Besylate 10 MG TABLET PO (09:06)
[2023-03-01] MEDS: Losartan Potassium 50 MG TABLET 100 MG PO (09:06)
[2023-03-01] MEDS: Memantine HCl 10 MG TABLET PO ×2 (09:07→20:06)
[2023-03-01] MEDS: Sertraline HCL 25 MG TABLET 75 MG PO (09:07)
[2023-03-01] MEDS: OXcarbazepine 300 MG TABLET PO ×2 (09:07→20:06)
[2023-03-01] MEDS: QUEtiapine Fumarate 25 MG TABLET PO ×3 (09:07→20:06)
[2023-03-01 18:00] VITALS: BP 127/60; PULSE 71; RESP 18; TEMP 36.4; O2SAT 98
--- NOTE | 2023-03-01 19:37 | HO.PSYCHPN ---
Subjective Subjective Date of Service: 03/01/23 Reason For Visit: F02.81 Interim History: Pt reports he is doing well. He is waiting for his to visit later today. RN reports he can be irritable but not agitated. He is confused. Mostly isolative. He denies any physical concerns. No agitated episodes. No inappropriate behaviors with females. Review of Systems Review of Systems Denies any recent fever chills or decrease in appetite respiratory denies any shortness of breath coverage production cardiovascular denies chest pain gastrointestinal denies any dysphagia abdominal pain nausea vomiting or diarrhea genitourinary denies any dysuria frequency or hematuria musculoskeletal denies any joint pain or swelling neuropsych denies any weakness or seizures all other systems reviewed are negative Yes Unobtainable due to mental status Mental Status Exam Mental Status Exam Narrative: Appearance: casually groomed, good hygiene, in NAD Behavior: irritable at times asking to go home Psychomotor: some increased agitation as pt request to leave hospital Speech: clear, normal rate/rhythm/volume, spontaneous TP: goal oriented, wanting to go home TC: no over psychosis or delusions, wanting to go home Mood: fine Affect: irritable SI: denies HI: denies VH/AH: none Delusions: none Memory/cog: alert, not oriented to situation, month, date or year. pending moca Diagnostics Vital Signs (24Hr): Vital Signs - 24 hr 03/01/23 08:32 Temperature 97.4 F Pulse Rate 61 Respiratory Rate 18 Blood Pressure 118/58 L Pulse Oximetry 96 Oxygen Delivery Method Room Air BMI result Body Mass Index 22.9 Labs 02/24/23 08:14 Medications Medications Current Medications Acetaminophen (Acetaminophen 325 Mg Tablet) 650 mg PO Q6H PRN PRN Reason: Headache/Pain Mild Scale (1-3) Al Hydroxide/Mg Hydroxide (Magnesium Hydrox/Alum Hydrox 30 Ml Oral.Susp) 30 ml PO Q6H PRN PRN Reason: Heartburn/Nausea Amlodipine Besylate (Amlodipine Besylate 10 Mg Tablet) 10 mg PO DAILY [facility]; Protocol Last Admin: 03/01/23 09:06 Dose: 10 mg Donepezil HCl (Donepezil Hcl 10 Mg Tablet) 10 mg PO BEDTIME [facility] Last Admin: 02/28/23 20:31 Dose: 10 mg Hydroxyzine HCl (Hydroxyzine Hcl 25 Mg Tablet) 25 mg PO Q6H PRN PRN Reason: Anxiety Last Admin: 02/27/23 20:41 Dose: 25 mg Losartan Potassium (Losartan Potassium 50 Mg Tablet) 100 mg PO DAILY [facility]; Protocol Last Admin: 03/01/23 09:06 Dose: 100 mg Magnesium Hydroxide (Milk Of Magnesia 30 Ml Oral.Susp) 30 ml PO DAILY PRN PRN Reason: Constipation Memantine (Memantine Hcl 10 Mg Tablet) 10 mg PO BID [facility] Last Admin: 03/01/23 09:07 Dose: 10 mg Mirtazapine (Mirtazapine 7.5 Mg Tablet) 7.5 mg PO BEDTIME [facility] Last Admin: 02/28/23 20:31 Dose: 7.5 mg Oxcarbazepine (Oxcarbazepine 300 Mg Tablet) 300 mg PO BID [facility] Last Admin: 03/01/23 09:07 Dose: 300 mg Quetiapine Fumarate (Quetiapine Fumarate 25 Mg Tablet) 25 mg PO Q6H PRN PRN Reason: agitation Quetiapine Fumarate (Quetiapine Fumarate 25 Mg Tablet) 25 mg PO TID [facility] Last Admin: 03/01/23 14:45 Dose: 25 mg Sertraline HCl (Sertraline Hcl 25 Mg Tablet) 75 mg PO DAILY [facility] Last Admin: 03/01/23 09:07 Dose: 75 mg Trazodone HCl (Trazodone Hcl 50 Mg Tablet) 50 mg PO BEDTIME PRN PRN Reason: Insomnia Trazodone HCl (Trazodone Hcl 50 Mg Tablet) 50 mg PO BEDTIME [facility] Last Admin: 02/28/23 20:32 Dose: 50 mg Allergies Allergies Allergy/AdvReac Type Severity Reaction Status Date / Time Sulfa (Sulfonamide Allergy Severe Anaphylaxis Verified 02/23/23 15:04 Antibiotics) gabapentin [From Neurontin] Allergy Intermediate Rash Verified 02/23/23 15:04 oxycodone AdvReac Severe delirum Verified 02/23/23 15:04 hydromorphone [From Dilaudid] AdvReac Intermediate Vomiting Verified 02/23/23 15:04 Assessment & Plan Assessment & Plan (1) Major neurocognitive disorder due to multiple etiologies with behavioral disturbance: Status: Acute Code(s): F02.818 - Dementia in other diseases classified elsewhere, unspecified severity, with other behavioral disturbance Plan Mr. Rao is a 88 year-old male with hx of dementia of multiple etiologies who was brought to [facility] due to increase combative behaviors, innapropriate sexual advances to neighbor. In the ED, utox is negative. UA not indicative of infection. CBC and CMP grossly unremarkable. Pt not oriented to situation, month, date. He is able to recognize that this is hospital but does not know why he is here. is healthcare proxy- which will be bring copy of HCP form. PLAN 1. Admit to S1, CV, 15 minutes checks for safety 2. Start mood stbailizer for impulsive, disinhibited sexual behaviors- will try trileptal. 3. continue seroquel scheduled as well as prn for agitation 4. aftercare planning 5.obtain collateral information. 02/25- increase seroquel to 25mg po TID- monitor sedation, gait. continue trileptal- will check Na. 02/26 continue current medications, monitor for over sedation and therapeutic benefit. 02/27 continue tx. can consider increasing seroquel to 50mg po TID. 02/28: Consider increase Seroquel. 03/01:Continue current plan of care. Reason for continued inpatient stay Substantial Risk for: inability to function and rapid decompensation Time Spent With Patient Time: Total time managing care of this patient today ____ minutes.
[2023-03-01] MEDS: traZODone HCL 50 MG TABLET PO (20:06)
[2023-03-01] MEDS: Mirtazapine 7.5 MG TABLET PO (20:06)
[2023-03-01] MEDS: Donepezil HCl 10 MG TABLET PO (20:07)
[2023-03-02 09:27] VITALS: BP 127/65; PULSE 67; RESP 20; TEMP 36.6; O2SAT 98
[2023-03-02] MEDS: QUEtiapine Fumarate 25 MG TABLET PO ×3 (09:32→20:17)
[2023-03-02] MEDS: Losartan Potassium 50 MG TABLET 100 MG PO (09:32)
[2023-03-02] MEDS: amLODIPine Besylate 10 MG TABLET PO (09:32)
[2023-03-02] MEDS: Sertraline HCL 25 MG TABLET 75 MG PO (09:32)
[2023-03-02] MEDS: OXcarbazepine 300 MG TABLET PO ×2 (09:32→20:17)
[2023-03-02] MEDS: Memantine HCl 10 MG TABLET PO ×2 (09:32→20:17)
--- NOTE | 2023-03-02 16:22 | P.PNPSI_ITS ---
Subjective Subjective Date of Service: 03/02/23 Reason For Visit: F02.81 Subjective Notes: Conditional Voluntary Interim History: Per nursing, no inappropriate sexual behaviors. No other behavioral concerns over the weekend. Pt taking medications as prescribed. Pt sitting watching TV. Pt denies any physical concerns. He reports mood is good. He denies SI/HI. Not fully oriented to situation, asks this sports book writer to let him watch TV. Medication Compliance: Yes Side effects from medications: No Diagnostics Vital Signs (24Hr): Vital Signs - 24 hr 03/01/23 18:00 03/02/23 09:27 Temperature 97.6 F 97.9 F Pulse Rate 71 67 Respiratory Rate 18 20 Blood Pressure 127/60 127/65 Pulse Oximetry 98 98 Oxygen Delivery Method Room Air Room Air BMI result Body Mass Index 22.9 Labs 02/24/23 08:14 Medications Medications Current Medications Acetaminophen (Acetaminophen 325 Mg Tablet) 650 mg PO Q6H PRN PRN Reason: Headache/Pain Mild Scale (1-3) Al Hydroxide/Mg Hydroxide (Magnesium Hydrox/Alum Hydrox 30 Ml Oral.Susp) 30 ml PO Q6H PRN PRN Reason: Heartburn/Nausea Amlodipine Besylate (Amlodipine Besylate 10 Mg Tablet) 10 mg PO DAILY [facility]; Protocol Last Admin: 03/02/23 09:32 Dose: 10 mg Donepezil HCl (Donepezil Hcl 10 Mg Tablet) 10 mg PO BEDTIME [facility] Last Admin: 03/01/23 20:07 Dose: 10 mg Hydroxyzine HCl (Hydroxyzine Hcl 25 Mg Tablet) 25 mg PO Q6H PRN PRN Reason: Anxiety Last Admin: 02/27/23 20:41 Dose: 25 mg Losartan Potassium (Losartan Potassium 50 Mg Tablet) 100 mg PO DAILY [facility]; Protocol Last Admin: 03/02/23 09:32 Dose: 100 mg Magnesium Hydroxide (Milk Of Magnesia 30 Ml Oral.Susp) 30 ml PO DAILY PRN PRN Reason: Constipation Memantine (Memantine Hcl 10 Mg Tablet) 10 mg PO BID [facility] Last Admin: 03/02/23 09:32 Dose: 10 mg Mirtazapine (Mirtazapine 7.5 Mg Tablet) 7.5 mg PO BEDTIME [facility] Last Admin: 03/01/23 20:06 Dose: 7.5 mg Oxcarbazepine (Oxcarbazepine 300 Mg Tablet) 300 mg PO BID [facility] Last Admin: 03/02/23 09:32 Dose: 300 mg Quetiapine Fumarate (Quetiapine Fumarate 25 Mg Tablet) 25 mg PO Q6H PRN PRN Reason: agitation Quetiapine Fumarate (Quetiapine Fumarate 25 Mg Tablet) 25 mg PO TID [facility] Last Admin: 03/02/23 15:12 Dose: 25 mg Sertraline HCl (Sertraline Hcl 25 Mg Tablet) 75 mg PO DAILY [facility] Last Admin: 03/02/23 09:32 Dose: 75 mg Trazodone HCl (Trazodone Hcl 50 Mg Tablet) 50 mg PO BEDTIME PRN PRN Reason: Insomnia Trazodone HCl (Trazodone Hcl 50 Mg Tablet) 50 mg PO BEDTIME [facility] Last Admin: 03/01/23 20:06 Dose: 50 mg Allergies Allergies Allergy/AdvReac Type Severity Reaction Status Date / Time Sulfa (Sulfonamide Allergy Severe Anaphylaxis Verified 02/23/23 15:04 Antibiotics) gabapentin [From Neurontin] Allergy Intermediate Rash Verified 02/23/23 15:04 oxycodone AdvReac Severe delirum Verified 02/23/23 15:04 hydromorphone [From Dilaudid] AdvReac Intermediate Vomiting Verified 02/23/23 15:04 Assessment & Plan Assessment & Plan (1) Major neurocognitive disorder due to multiple etiologies with behavioral disturbance: Status: Acute Code(s): F02.818 - Dementia in other diseases classified elsewhere, unspecified severity, with other behavioral disturbance Plan Mr. Rao is a 88 year-old male with hx of dementia of multiple etiologies who was brought to [facility] due to increase combative behaviors, innapropriate sexual advances to neighbor. In the ED, utox is negative. UA not indicative of infection. CBC and CMP grossly unremarkable. Pt not oriented to situation, month, date. He is able to recognize that this is hospital but does not know why he is here. is healthcare proxy- which will be bring copy of HCP form. PLAN 1. Admit to S1, CV, 15 minutes checks for safety 2. Start mood stbailizer for impulsive, disinhibited sexual behaviors- will try trileptal. 3. continue seroquel scheduled as well as prn for agitation 4. aftercare planning 5.obtain collateral information. 02/25- increase seroquel to 25mg po TID- monitor sedation, gait. continue trileptal- will check Na. 02/26 continue current medications, monitor for over sedation and therapeutic benefit. 02/27 continue tx. can consider increasing seroquel to 50mg po TID. 02/28: Consider increase Seroquel. 03/01:Continue current plan of care. 03/02 continue tx. will check Na tomorrow as pt on trileptal. Reason for continued inpatient stay Substantial Risk for: inability to function Time Spent With Patient Time: Total time managing care of this patient today ____ minutes.
[2023-03-02 19:40] VITALS: BP 126/62; PULSE 62; RESP 18; TEMP 36.2; O2SAT 96
[2023-03-02] MEDS: traZODone HCL 50 MG TABLET PO (20:17)
[2023-03-02] MEDS: Mirtazapine 7.5 MG TABLET PO (20:17)
[2023-03-02] MEDS: Donepezil HCl 10 MG TABLET PO (20:17)
[2023-03-03 08:54] LABS: Alanine Aminotransferase 21 U/L (0-40); Albumin Level 3.6 g/dL (3.5-5.0); Alkaline Phosphatase 83 U/L (39-117); Aspartate Amino Transferase 24 U/L (5-37); Bilirubin Total 0.8 mg/dL (0.0-1.0); Blood Urea Nitrogen 16 mg/dL (9-16); Creatinine Clr Calc Pharmacy 58.7; Estimated Glomerular Filt Rate > 60; Glucose Random 83 mg/dL (60-115); Total Protein 6.3 g/dL (6.5-8.0)
[2023-03-03 09:06] LABS: Anion Gap 13 (12-20); Carbon Dioxide 21 mmol/L (22-29); Chloride 92 mmol/L (96-108); Potassium 4.1 mmol/L (3.3-5.1); Sodium 122 mmol/L (135-145)
[2023-03-03 09:07] VITALS: BP 102/55; PULSE 69; RESP 18; TEMP 36.1; O2SAT 97
[2023-03-03] MEDS: QUEtiapine Fumarate 25 MG TABLET PO ×3 (09:12→20:37)
[2023-03-03] MEDS: Sertraline HCL 25 MG TABLET 75 MG PO (09:12)
[2023-03-03] MEDS: Memantine HCl 10 MG TABLET PO ×2 (09:12→20:36)
[2023-03-03] MEDS: OXcarbazepine 300 MG TABLET PO (09:12)
--- NOTE | 2023-03-03 10:15 | PC.NURSE ---
BP 102/55, Eugenio asymptomatic and morning Norvasc and Losartan held; Sayra Thorne NP notified. Sodium level 122 and Sayra Thorne NP notified.
[2023-03-03 10:54] LABS: Osmolality, Serum 260 mosm/kg (281-305)
--- NOTE | 2023-03-03 11:35 | HO.PSYCHPN ---
Subjective Subjective Date of Service: 03/03/23 Reason For Visit: F02.81 Subjective Notes: Conditional Voluntary Interim History: Per nursing, pt continues to present with no inappropriate sexual behaviors. Pt has been visible on the unit, social with select peers. Pt taking medications as prescribed. Sodium- today low at 122. most likely related to trileptal, pending urine sodium and osmolality. In light of new finding- will switch to depakote. Review of Systems Review of Systems Denies any recent fever chills or decrease in appetite respiratory denies any shortness of breath coverage production cardiovascular denies chest pain gastrointestinal denies any dysphagia abdominal pain nausea vomiting or diarrhea genitourinary denies any dysuria frequency or hematuria musculoskeletal denies any joint pain or swelling neuropsych denies any weakness or seizures all other systems reviewed are negative Yes Unobtainable due to mental status Mental Status Exam Mental Status Exam Narrative: Appearance: casually groomed, good hygiene, in NAD Behavior: irritable at times asking to go home Psychomotor: some increased agitation as pt request to leave hospital Speech: clear, normal rate/rhythm/volume, spontaneous TP: goal oriented, wanting to go home TC: no over psychosis or delusions, wanting to go home Mood: fine Affect: irritable SI: denies HI: denies VH/AH: none Delusions: none Memory/cog: alert, not oriented to situation, month, date or year. pending moca Diagnostics Vital Signs (24Hr): Vital Signs - 24 hr 03/02/23 19:40 03/03/23 09:07 Temperature 97.1 F 97.0 F Pulse Rate 62 69 Respiratory Rate 18 18 Blood Pressure 126/62 102/55 L Pulse Oximetry 96 97 Oxygen Delivery Method Room Air Room Air BMI result Body Mass Index 22.9 Labs 03/03/23 07:20 Labs: Laboratory Results - last 48 hr 03/03/23 03/03/23 07:20 10:10 Sodium 122 L Potassium 4.1 Chloride 92 L Carbon Dioxide 21 L Anion Gap 13 BUN 16 Creatinine 0.87 Estim Creat Clear Calc 58.7 Estimated GFR > 60 Random Glucose 83 Osmolality 260 L Calcium 9.0 Total Bilirubin 0.8 AST 24 ALT 21 Alkaline Phosphatase 83 Total Protein 6.3 L Albumin 3.6 Medications Medications Current Medications Acetaminophen (Acetaminophen 325 Mg Tablet) 650 mg PO Q6H PRN PRN Reason: Headache/Pain Mild Scale (1-3) Al Hydroxide/Mg Hydroxide (Magnesium Hydrox/Alum Hydrox 30 Ml Oral.Susp) 30 ml PO Q6H PRN PRN Reason: Heartburn/Nausea Amlodipine Besylate (Amlodipine Besylate 10 Mg Tablet) 10 mg PO DAILY [facility]; Protocol Last Admin: 03/03/23 09:25 Dose: Not Given Divalproex Sodium (Divalproex Sodium 250 Mg Tablet.Dr) 250 mg PO BID [facility] Donepezil HCl (Donepezil Hcl 10 Mg Tablet) 10 mg PO BEDTIME [facility] Last Admin: 03/02/23 20:17 Dose: 10 mg Hydroxyzine HCl (Hydroxyzine Hcl 25 Mg Tablet) 25 mg PO Q6H PRN PRN Reason: Anxiety Last Admin: 02/27/23 20:41 Dose: 25 mg Losartan Potassium (Losartan Potassium 50 Mg Tablet) 100 mg PO DAILY [facility]; Protocol Last Admin: 03/03/23 09:25 Dose: Not Given Magnesium Hydroxide (Milk Of Magnesia 30 Ml Oral.Susp) 30 ml PO DAILY PRN PRN Reason: Constipation Memantine (Memantine Hcl 10 Mg Tablet) 10 mg PO BID [facility] Last Admin: 03/03/23 09:12 Dose: 10 mg Mirtazapine (Mirtazapine 7.5 Mg Tablet) 7.5 mg PO BEDTIME [facility] Last Admin: 03/02/23 20:17 Dose: 7.5 mg Quetiapine Fumarate (Quetiapine Fumarate 25 Mg Tablet) 25 mg PO Q6H PRN PRN Reason: agitation Quetiapine Fumarate (Quetiapine Fumarate 25 Mg Tablet) 25 mg PO TID [facility] Last Admin: 03/03/23 09:12 Dose: 25 mg Sertraline HCl (Sertraline Hcl 25 Mg Tablet) 75 mg PO DAILY [facility] Last Admin: 03/03/23 09:12 Dose: 75 mg Trazodone HCl (Trazodone Hcl 50 Mg Tablet) 50 mg PO BEDTIME PRN PRN Reason: Insomnia Trazodone HCl (Trazodone Hcl 50 Mg Tablet) 50 mg PO BEDTIME [facility] Last Admin: 03/02/23 20:17 Dose: 50 mg Allergies Allergies Allergy/AdvReac Type Severity Reaction Status Date / Time Sulfa (Sulfonamide Allergy Severe Anaphylaxis Verified 02/23/23 15:04 Antibiotics) gabapentin [From Neurontin] Allergy Intermediate Rash Verified 02/23/23 15:04 oxycodone AdvReac Severe delirum Verified 02/23/23 15:04 hydromorphone [From Dilaudid] AdvReac Intermediate Vomiting Verified 02/23/23 15:04 Assessment & Plan Assessment & Plan (1) Major neurocognitive disorder due to multiple etiologies with behavioral disturbance: Status: Acute Code(s): F02.818 - Dementia in other diseases classified elsewhere, unspecified severity, with other behavioral disturbance Plan Mr. Rao is a 88 year-old male with hx of dementia of multiple etiologies who was brought to [facility] due to increase combative behaviors, innapropriate sexual advances to neighbor. In the ED, utox is negative. UA not indicative of infection. CBC and CMP grossly unremarkable. Pt not oriented to situation, month, date. He is able to recognize that this is hospital but does not know why he is here. is healthcare proxy- which will be bring copy of HCP form. PLAN 1. Admit to S1, CV, 15 minutes checks for safety 2. Start mood stbailizer for impulsive, disinhibited sexual behaviors- will try trileptal. 3. continue seroquel scheduled as well as prn for agitation 4. aftercare planning 5.obtain collateral information. 02/25- increase seroquel to 25mg po TID- monitor sedation, gait. continue trileptal- will check Na. 02/26 continue current medications, monitor for over sedation and therapeutic benefit. 02/27 continue tx. can consider increasing seroquel to 50mg po TID. 02/28: Consider increase Seroquel. 03/01:Continue current plan of care. 03/02 continue tx. will check Na tomorrow as pt on trileptal. 03/03- Hypotonic hyponatremia, d/c trileptal, start depakote 250mg po BID. ordered urine osmolality/sodium pending results. fluid restriction 1200cc. recheck NA tomorrow. Reason for continued inpatient stay Substantial Risk for: inability to function Time Spent With Patient Time: Total time managing care of this patient today ____ minutes.
[2023-03-03 11:57] VITALS: BP 145/79
[2023-03-03 14:51] LABS: Sodium Urine Random < 20.0 mmol/L
[2023-03-03 15:52] LABS: Osmolality Urine 607 mosm/kg (373-1093)
[2023-03-03 18:00] VITALS: BP 127/66; PULSE 64; RESP 18; TEMP 36.2; O2SAT 94
[2023-03-03] MEDS: Divalproex Sodium 250 MG TABLET.DR PO (20:36)
[2023-03-03] MEDS: Donepezil HCl 10 MG TABLET PO (20:36)
[2023-03-03] MEDS: Mirtazapine 7.5 MG TABLET PO (20:36)
[2023-03-03] MEDS: traZODone HCL 50 MG TABLET PO ×2 (20:37→23:08)
[2023-03-03] MEDS: hydrOXYzine HCL 25 MG TABLET PO (23:08)
[2023-03-04 08:10] VITALS: BP 132/68; PULSE 65; RESP 18; TEMP 36.1; O2SAT 98
[2023-03-04] MEDS: Losartan Potassium 50 MG TABLET 100 MG PO (08:18)
[2023-03-04] MEDS: Sertraline HCL 25 MG TABLET 75 MG PO (08:18)
[2023-03-04] MEDS: Memantine HCl 10 MG TABLET PO ×2 (08:18→20:29)
[2023-03-04] MEDS: QUEtiapine Fumarate 25 MG TABLET PO ×3 (08:18→20:29)
[2023-03-04] MEDS: Divalproex Sodium 250 MG TABLET.DR PO ×2 (08:18→20:29)
[2023-03-04] MEDS: amLODIPine Besylate 10 MG TABLET PO (08:18)
[2023-03-04 10:17] LABS: Alanine Aminotransferase 22 U/L (0-40); Albumin Level 3.8 g/dL (3.5-5.0); Alkaline Phosphatase 90 U/L (39-117); Anion Gap 10 (12-20); Aspartate Amino Transferase 24 U/L (5-37); Bilirubin Total 0.7 mg/dL (0.0-1.0); Blood Urea Nitrogen 16 mg/dL (9-16); Calcium 9.1 mg/dL (8.4-10.2); Carbon Dioxide 23 mmol/L (22-29); Chloride 89 mmol/L (96-108); Creatinine Clr Calc Pharmacy 50.6; Estimated Glomerular Filt Rate > 60; Glucose Random 91 mg/dL (60-115); Sodium 118 mmol/L (135-145); Total Protein 6.9 g/dL (6.5-8.0)
--- NOTE | 2023-03-04 10:22 | PC.NURSE ---
Addendum entered by Cintia Ley RN 03/04/23 10:32: Fluid restriction has been reduced to 1000ml/day. Original Note: Critical lab value on 03/04/23 at 09:21 Na 118, patricia Thorne notified, will consult hospitalist.
--- NOTE | 2023-03-04 11:43 | MHC.CLN ---
NUTRITION PATIENT WITH LOW SODIUM 03/0462=511. Na 03/0373=956 LOW. DIET=REGULAR WITH 1000 ML FLUID RESTRICTION. MONITOR FLUID RESTRICTION, LABS, INTAKE.
--- NOTE | 2023-03-04 11:45 | P.EN_ITS ---
Documented by User: HAMMAD Allen 03/04/23 11:48 Event Note Date of Service: 03/04/23 Event Note: Patient recently started on Trileptal, sodium today came back at critical level of 118. Patient with mild dementia, currently at baseline mentation. Patient seen and evaluated, has no acute medical complaints at this time. Denies headache, nausea, vomiting. No tremors or difficulty moving. Spoke with Nephrology and will give patient 30 g urea and check sodium in 4 hours. T rileptal has been the seed and patient placed on 1000 cc fluid restriction. Time Spent With Patient Time: Total time managing care of this patient today ____ minutes. Documented by User: Sandrita Bland MD 03/04/23 16:29 Event Note Date of Service: 03/04/23 Event Note: Patient recently started on Trileptal, sodium today came back at critical level of 118. Patient with mild dementia, currently at baseline mentation. Patient seen and evaluated, has no acute medical complaints at this time. Denies headache, nausea, vomiting. No tremors or difficulty moving. Spoke with Nephrology and will give patient 30 g urea and check sodium in 4 hours. Trileptal has been the seed and patient placed on 1000 cc fluid restriction. d/w nephrrology repeated sodium in 121 , recommended to add additional dose of urea and repeat BMP at 9 pm . nephrology eval added
[2023-03-04] MEDS: Urea 15 GM POWDER 30 GM PO (12:19)
--- NOTE | 2023-03-04 15:19 | HO.PSYCHPN ---
Subjective Subjective Date of Service: 03/04/23 Reason For Visit: F02.81 Subjective Notes: Conditional Voluntary Interim History: Per nursing, pt slept through the night. No behavioral concerns. Pt's Na today 118-hospitalist consult ordered, nephrology consulted who recomend Urea 30g and recheck at around 4pm. No changes in pt's mentation- he reports feeling tired. He reports he is waiting for his and hopes to go home soon. No vomiting, gait changes. Medication Compliance: Yes Review of Systems Review of Systems Denies any recent fever chills or decrease in appetite respiratory denies any shortness of breath coverage production cardiovascular denies chest pain gastrointestinal denies any dysphagia abdominal pain nausea vomiting or diarrhea genitourinary denies any dysuria frequency or hematuria musculoskeletal denies any joint pain or swelling neuropsych denies any weakness or seizures all other systems reviewed are negative Yes Unobtainable due to mental status Mental Status Exam Mental Status Exam Narrative: Appearance: casually groomed, good hygiene, in NAD Behavior: irritable at times asking to go home Psychomotor: some increased agitation as pt request to leave hospital Speech: clear, normal rate/rhythm/volume, spontaneous TP: goal oriented, wanting to go home TC: no over psychosis or delusions, wanting to go home Mood: fine Affect: irritable SI: denies HI: denies VH/AH: none Delusions: none Memory/cog: alert, not oriented to situation, month, date or year. pending moca Diagnostics Vital Signs (24Hr): Vital Signs - 24 hr 03/03/23 18:00 03/04/23 08:10 Temperature 97.2 F 97.0 F Pulse Rate 64 65 Respiratory Rate 18 18 Blood Pressure 127/66 132/68 Pulse Oximetry 94 98 Oxygen Delivery Method Room Air Room Air BMI result Body Mass Index 22.9 Labs 03/04/23 09:21 Labs: Laboratory Results - last 48 hr 03/03/23 03/03/23 03/03/23 07:20 10:10 14:03 Sodium 122 L Potassium 4.1 Chloride 92 L Carbon Dioxide 21 L Anion Gap 13 BUN 16 Creatinine 0.87 Estim Creat Clear Calc 58.7 Estimated GFR > 60 Random Glucose 83 Osmolality 260 L Calcium 9.0 Total Bilirubin 0.8 AST 24 ALT 21 Alkaline Phosphatase 83 Total Protein 6.3 L Albumin 3.6 Urine Osmolality Ur Random Sodium < 20.0 03/03/23 03/04/23 14:03 09:21 Sodium 118 L* Potassium 4.0 Chloride 89 L Carbon Dioxide 23 Anion Gap 10 L BUN 16 Creatinine 1.01 Estim Creat Clear Calc 50.6 Estimated GFR > 60 Random Glucose 91 Osmolality Calcium 9.1 Total Bilirubin 0.7 AST 24 ALT 22 Alkaline Phosphatase 90 Total Protein 6.9 Albumin 3.8 Urine Osmolality 607 Ur Random Sodium Medications Medications Current Medications Acetaminophen (Acetaminophen 325 Mg Tablet) 650 mg PO Q6H PRN PRN Reason: Headache/Pain Mild Scale (1-3) Al Hydroxide/Mg Hydroxide (Magnesium Hydrox/Alum Hydrox 30 Ml Oral.Susp) 30 ml PO Q6H PRN PRN Reason: Heartburn/Nausea Amlodipine Besylate (Amlodipine Besylate 10 Mg Tablet) 10 mg PO DAILY [facility]; Protocol Last Admin: 03/04/23 08:18 Dose: 10 mg Divalproex Sodium (Divalproex Sodium 250 Mg Tablet.) 250 mg PO BID [facility] Last Admin: 03/04/23 08:18 Dose: 250 mg Donepezil HCl (Donepezil Hcl 10 Mg Tablet) 10 mg PO BEDTIME [facility] Last Admin: 03/03/23 20:36 Dose: 10 mg Hydroxyzine HCl (Hydroxyzine Hcl 25 Mg Tablet) 25 mg PO Q6H PRN PRN Reason: Anxiety Last Admin: 03/03/23 23:08 Dose: 25 mg Losartan Potassium (Losartan Potassium 50 Mg Tablet) 100 mg PO DAILY [facility]; Protocol Last Admin: 03/04/23 08:18 Dose: 100 mg Magnesium Hydroxide (Milk Of Magnesia 30 Ml Oral.Susp) 30 ml PO DAILY PRN PRN Reason: Constipation Memantine (Memantine Hcl 10 Mg Tablet) 10 mg PO BID [facility] Last Admin: 03/04/23 08:18 Dose: 10 mg Mirtazapine (Mirtazapine 7.5 Mg Tablet) 7.5 mg PO BEDTIME [facility] Last Admin: 03/03/23 20:36 Dose: 7.5 mg Quetiapine Fumarate (Quetiapine Fumarate 25 Mg Tablet) 25 mg PO Q6H PRN PRN Reason: agitation Quetiapine Fumarate (Quetiapine Fumarate 25 Mg Tablet) 25 mg PO TID [facility] Last Admin: 03/04/23 08:18 Dose: 25 mg Sertraline HCl (Sertraline Hcl 25 Mg Tablet) 75 mg PO DAILY [facility] Last Admin: 03/04/23 08:18 Dose: 75 mg Trazodone HCl (Trazodone Hcl 50 Mg Tablet) 50 mg PO BEDTIME PRN PRN Reason: Insomnia Last Admin: 03/03/23 23:08 Dose: 50 mg Trazodone HCl (Trazodone Hcl 50 Mg Tablet) 50 mg PO BEDTIME [facility] Last Admin: 03/03/23 20:37 Dose: 50 mg Allergies Allergies Allergy/AdvReac Type Severity Reaction Status Date / Time Sulfa (Sulfonamide Allergy Severe Anaphylaxis Verified 02/23/23 15:04 Antibiotics) gabapentin [From Neurontin] Allergy Intermediate Rash Verified 02/23/23 15:04 oxycodone AdvReac Severe delirum Verified 02/23/23 15:04 hydromorphone [From Dilaudid] AdvReac Intermediate Vomiting Verified 02/23/23 15:04 Assessment & Plan Assessment & Plan (1) Major neurocognitive disorder due to multiple etiologies with behavioral disturbance: Status: Acute Code(s): F02.818 - Dementia in other diseases classified elsewhere, unspecified severity, with other behavioral disturbance Plan Mr. Rao is a 88 year-old male with hx of dementia of multiple etiologies who was brought to [facility] due to increase combative behaviors, innapropriate sexual advances to neighbor. In the ED, utox is negative. UA not indicative of infection. CBC and CMP grossly unremarkable. Pt not oriented to situation, month, date. He is able to recognize that this is hospital but does not know why he is here. is healthcare proxy- which will be bring copy of HCP form. PLAN 1. Admit to S1, CV, 15 minutes checks for safety 2. Start mood stbailizer for impulsive, disinhibited sexual behaviors- will try trileptal. 3. continue seroquel scheduled as well as prn for agitation 4. aftercare planning 5.obtain collateral information. 02/25- increase seroquel to 25mg po TID- monitor sedation, gait. continue trileptal- will check Na. 02/26 continue current medications, monitor for over sedation and therapeutic benefit. 02/27 continue tx. can consider increasing seroquel to 50mg po TID. 02/28: Consider increase Seroquel. 03/01:Continue current plan of care. 03/02 continue tx. will check Na tomorrow as pt on trileptal. 03/03- Hypotonic hyponatremia, d/c trileptal, start depakote 250mg po BID. ordered urine osmolality/sodium pending results. fluid restriction 1200cc. recheck NA tomorrow. 03/04- Na now 118. No changes in mentation, no vomiting, headache, pt does report feeling tired, no gait changes/abnormality- seen by hospitalist who consulted with nephrology recommended Urea 30g, recheck NA in 4 hrs today. Fluid restriction 1000cc. Reason for continued inpatient stay Substantial Risk for: inability to function Time Spent With Patient Time: Total time managing care of this patient today ____ minutes.
[2023-03-04 15:48] LABS: Anion Gap 12 (12-20); Blood Urea Nitrogen 37 mg/dL (9-16); Calcium 9.5 mg/dL (8.4-10.2); Carbon Dioxide 23 mmol/L (22-29); Chloride 91 mmol/L (96-108); Creatinine Clr Calc Pharmacy 58.1; Estimated Glomerular Filt Rate > 60; Glucose Random 95 mg/dL (60-115); Potassium 4.6 mmol/L (3.3-5.1); Sodium 121 mmol/L (135-145)
[2023-03-04] MEDS: Urea 15 GM POWDER PO ×2 (17:18→21:48)
[2023-03-04 18:00] VITALS: BP 120/56; PULSE 59; RESP 16; TEMP 36.5; O2SAT 93
[2023-03-04] MEDS: traZODone HCL 50 MG TABLET PO ×2 (20:29→21:35)
[2023-03-04] MEDS: Mirtazapine 7.5 MG TABLET PO (20:29)
[2023-03-04] MEDS: Donepezil HCl 10 MG TABLET PO (20:29)
[2023-03-04 21:20] LABS: Sodium 119 mmol/L (135-145)
[2023-03-04] MEDS: hydrOXYzine HCL 25 MG TABLET PO (21:35)
[2023-03-05] MEDS: traZODone HCL 50 MG TABLET PO ×2 (02:32→21:02)
[2023-03-05 08:00] VITALS: BP 118/60; PULSE 68; RESP 18; TEMP 36.1; O2SAT 98
--- NOTE | 2023-03-05 08:45 | P.PNPSI_ITS ---
Subjective Subjective Date of Service: 03/05/23 Reason For Visit: F02.81 Subjective Notes: Conditional Voluntary Interim History: Per nursing, pt slept through the night. No behavioral concerns. Pt's Na today 122- Pt seen by nephrology, NA labs q6h, continue on fluid restriction, and UREA. No changes in pt's mentation- he reports feeling tired. He reports he is waiting for his and hopes to go home soon. No vomiting, no headache, gait changes. Medication Compliance: Yes Review of Systems Review of Systems Unable to obtain detailed review of system. Patient is poor historian. All information was obtained from the chart. Yes Unobtainable due to mental status Mental Status Exam Mental Status Exam Narrative: Appearance: casually groomed, good hygiene, in NAD Behavior: irritable at times asking to go home Psychomotor: some increased agitation as pt request to leave hospital Speech: clear, normal rate/rhythm/volume, spontaneous TP: goal oriented, wanting to go home TC: no over psychosis or delusions, wanting to go home Mood: fine Affect: irritable SI: denies HI: denies VH/AH: none Delusions: none Memory/cog: alert, not oriented to situation, month, date or year. pending moca Diagnostics Vital Signs (24Hr): Vital Signs - 24 hr 03/04/23 18:00 Temperature 97.7 F Pulse Rate 59 Respiratory Rate 16 Blood Pressure 120/56 L Pulse Oximetry 93 Oxygen Delivery Method Room Air BMI result Body Mass Index 22.9 Labs 03/04/23 20:44 Labs: Laboratory Results - last 48 hr 03/03/23 03/03/23 03/03/23 07:20 10:10 14:03 Sodium 122 L Potassium 4.1 Chloride 92 L Carbon Dioxide 21 L Anion Gap 13 BUN 16 Creatinine 0.87 Estim Creat Clear Calc 58.7 Estimated GFR > 60 Random Glucose 83 Osmolality 260 L Calcium 9.0 Total Bilirubin 0.8 AST 24 ALT 21 Alkaline Phosphatase 83 Total Protein 6.3 L Albumin 3.6 Urine Osmolality Ur Random Sodium < 20.0 03/03/23 03/04/23 03/04/23 14:03 09:21 15:26 Sodium 118 L* 121 L Potassium 4.0 4.6 Chloride 89 L 91 L Carbon Dioxide 23 23 Anion Gap 10 L 12 BUN 16 37 H Creatinine 1.01 0.88 Estim Creat Clear Calc 50.6 58.1 Estimated GFR > 60 > 60 Random Glucose 91 95 Osmolality Calcium 9.1 9.5 Total Bilirubin 0.7 AST 24 ALT 22 Alkaline Phosphatase 90 Total Protein 6.9 Albumin 3.8 Urine Osmolality 607 Ur Random Sodium 03/04/23 20:44 Sodium 119 L* Potassium Chloride Carbon Dioxide Anion Gap BUN Creatinine Estim Creat Clear Calc Estimated GFR Random Glucose Osmolality Calcium Total Bilirubin AST ALT Alkaline Phosphatase Total Protein Albumin Urine Osmolality Ur Random Sodium Medications Medications Current Medications Acetaminophen (Acetaminophen 325 Mg Tablet) 650 mg PO Q6H PRN PRN Reason: Headache/Pain Mild Scale (1-3) Al Hydroxide/Mg Hydroxide (Magnesium Hydrox/Alum Hydrox 30 Ml Oral.Susp) 30 ml PO Q6H PRN PRN Reason: Heartburn/Nausea Amlodipine Besylate (Amlodipine Besylate 10 Mg Tablet) 10 mg PO DAILY [facility]; Protocol Last Admin: 03/04/23 08:18 Dose: 10 mg Divalproex Sodium (Divalproex Sodium 250 Mg Tablet.Dr) 250 mg PO BID [facility] Last Admin: 03/04/23 20:29 Dose: 250 mg Donepezil HCl (Donepezil Hcl 10 Mg Tablet) 10 mg PO BEDTIME [facility] Last Admin: 03/04/23 20:29 Dose: 10 mg Hydroxyzine HCl (Hydroxyzine Hcl 25 Mg Tablet) 25 mg PO Q6H PRN PRN Reason: Anxiety Last Admin: 03/04/23 21:35 Dose: 25 mg Losartan Potassium (Losartan Potassium 50 Mg Tablet) 100 mg PO DAILY [facility]; Protocol Last Admin: 03/04/23 08:18 Dose: 100 mg Magnesium Hydroxide (Milk Of Magnesia 30 Ml Oral.Susp) 30 ml PO DAILY PRN PRN Reason: Constipation Memantine (Memantine Hcl 10 Mg Tablet) 10 mg PO BID [facility] Last Admin: 03/04/23 20:29 Dose: 10 mg Mirtazapine (Mirtazapine 7.5 Mg Tablet) 7.5 mg PO BEDTIME [facility] Last Admin: 03/04/23 20:29 Dose: 7.5 mg Quetiapine Fumarate (Quetiapine Fumarate 25 Mg Tablet) 25 mg PO Q6H PRN PRN Reason: agitation Quetiapine Fumarate (Quetiapine Fumarate 25 Mg Tablet) 25 mg PO TID [facility] Last Admin: 03/04/23 20:29 Dose: 25 mg Sertraline HCl (Sertraline Hcl 25 Mg Tablet) 75 mg PO DAILY [facility] Last Admin: 03/04/23 08:18 Dose: 75 mg Trazodone HCl (Trazodone Hcl 50 Mg Tablet) 50 mg PO BEDTIME PRN PRN Reason: Insomnia Last Admin: 03/05/23 02:32 Dose: 50 mg Trazodone HCl (Trazodone Hcl 50 Mg Tablet) 50 mg PO BEDTIME [facility] Last Admin: 03/04/23 20:29 Dose: 50 mg Allergies Allergies Allergy/AdvReac Type Severity Reaction Status Date / Time Sulfa (Sulfonamide Allergy Severe Anaphylaxis Verified 02/23/23 15:04 Antibiotics) gabapentin [From Neurontin] Allergy Intermediate Rash Verified 02/23/23 15:04 oxycodone AdvReac Severe delirum Verified 02/23/23 15:04 hydromorphone [From Dilaudid] AdvReac Intermediate Vomiting Verified 02/23/23 15:04 Assessment & Plan Assessment & Plan (1) Major neurocognitive disorder due to multiple etiologies with behavioral disturbance: Status: Acute Code(s): F02.818 - Dementia in other diseases classified elsewhere, unspecified severity, with other behavioral disturbance Plan Mr. Rao is a 88 year-old male with hx of dementia of multiple etiologies who was brought to [facility] due to increase combative behaviors, innapropriate sexual advances to neighbor. In the ED, utox is negative. UA not indicative of infection. CBC and CMP grossly unremarkable. Pt not oriented to situation, month, date. He is able to recognize that this is hospital but does not know why he is here. is healthcare proxy- which will be bring copy of HCP form. PLAN 1. Admit to S1, CV, 15 minutes checks for safety 2. Start mood stbailizer for impulsive, disinhibited sexual behaviors- will try trileptal. 3. continue seroquel scheduled as well as prn for agitation 4. aftercare planning 5.obtain collateral information. 02/25- increase seroquel to 25mg po TID- monitor sedation, gait. continue trileptal- will check Na. 02/26 continue current medications, monitor for over sedation and therapeutic benefit. 02/27 continue tx. can consider increasing seroquel to 50mg po TID. 02/28: Consider increase Seroquel. 03/01:Continue current plan of care. 03/02 continue tx. will check Na tomorrow as pt on trileptal. 03/03- Hypotonic hyponatremia, d/c trileptal, start depakote 250mg po BID. ordered urine osmolality/sodium pending results. fluid restriction 1200cc. recheck NA tomorrow. 03/04- Na now 118. No changes in mentation, no vomiting, headache, pt does report feeling tired, no gait changes/abnormality- seen by hospitalist who consulted with nephrology recommended Urea 30g, recheck NA in 4 hrs today. Fluid restr iction 1000cc. 03/05- seen by assistant broker. Na 122- continue Urea 30gm po BID, fluid restriction to 1200cc. Na check q6h. will d/c depakote and remeron, avoid multiple agents that could worsen hyponatremia, until more stable. Reason for continued inpatient stay Substantial Risk for: inability to function Time Spent With Patient Time: Total time managing care of this patient today ____ minutes.
[2023-03-05] MEDS: QUEtiapine Fumarate 25 MG TABLET PO ×3 (08:49→21:02)
[2023-03-05] MEDS: Losartan Potassium 50 MG TABLET 100 MG PO (08:49)
[2023-03-05] MEDS: amLODIPine Besylate 10 MG TABLET PO (08:50)
[2023-03-05] MEDS: Sertraline HCL 25 MG TABLET 75 MG PO (08:50)
[2023-03-05] MEDS: Divalproex Sodium 250 MG TABLET.DR PO (08:50)
[2023-03-05] MEDS: Memantine HCl 10 MG TABLET PO ×2 (08:50→21:02)
[2023-03-05 09:40] LABS: Anion Gap 13 (12-20); Blood Urea Nitrogen 44 mg/dL (9-16); Carbon Dioxide 23 mmol/L (22-29); Chloride 93 mmol/L (96-108); Creatinine Clr Calc Pharmacy 46.9; Estimated Glomerular Filt Rate > 60; Glucose Random 87 mg/dL (60-115); Potassium 4.3 mmol/L (3.3-5.1); Sodium 125 mmol/L (135-145)
--- NOTE | 2023-03-05 10:30 | PM.CNNEP ---
History of Present Illness Reason for Consult Consult date: 03/18/23 Reason for consult: Hyponatremia Chief Complaint Chief complaint: F02.81 History of Present Illness Narrative: 88-year-old man with history of hypertension, depression admitted to [facility] for mental health care. He has been on SSRI. Serum sodium was 119. He was given oral urea powder. This morning serum sodium was 125 millimoles. Review of Systems Review of Systems Unable to obtain detailed review of system. Patient is poor historian. All information was obtained from the chart. [facility] Past Medical History Medical History (Updated 03/05/23 @ 10:33 by Abraham Woodruff MD) Depression Social History Social History Household Members: Spouse and Other Household Members Other:: son Housing: House Do you presently have visiting nurse or other home services: No Patient Tobacco Use Status: Former Tobacco user Tobacco use type: Cigarette e-Cigarette/Vaping Use: Never Used Second Hand Smoke Exposure: No service: Yes Sexual orientation: Straight/Heterosexual Meds Allergies Allergy/AdvReac Type Severity Reaction Status Date / Time Sulfa (Sulfonamide Allergy Severe Anaphylaxis Verified 02/23/23 15:04 Antibiotics) gabapentin [From Neurontin] Allergy Intermediate Rash Verified 02/23/23 15:04 oxycodone AdvReac Severe delirum Verified 02/23/23 15:04 hydromorphone [From Dilaudid] AdvReac Intermediate Vomiting Verified 02/23/23 15:04 Active Medications: Current Medications Acetaminophen (Acetaminophen 325 Mg Tablet) 650 mg PO Q6H PRN PRN Reason: Headache/Pain Mild Scale (1-3) Al Hydroxide/Mg Hydroxide (Magnesium Hydrox/Alum Hydrox 30 Ml Oral.Susp) 30 ml PO Q6H PRN PRN Reason: Heartburn/Nausea Amlodipine Besylate (Amlodipine Besylate 10 Mg Tablet) 10 mg PO DAILY [facility]; Protocol Last Admin: 03/05/23 08:50 Dose: 10 mg Divalproex Sodium (Divalproex Sodium 250 Mg Tablet.) 250 mg PO BID [facility] Last Admin: 03/05/23 08:50 Dose: 250 mg Donepezil HCl (Donepezil Hcl 10 Mg Tablet) 10 mg PO BEDTIME [facility] Last Admin: 03/04/23 20:29 Dose: 10 mg Hydroxyzine HCl (Hydroxyzine Hcl 25 Mg Tablet) 25 mg PO Q6H PRN PRN Reason: Anxiety Last Admin: 03/04/23 21:35 Dose: 25 mg Losartan Potassium (Losartan Potassium 50 Mg Tablet) 100 mg PO DAILY [facility]; Protocol Last Admin: 03/05/23 08:49 Dose: 100 mg Magnesium Hydroxide (Milk Of Magnesia 30 Ml Oral.Susp) 30 ml PO DAILY PRN PRN Reason: Constipation Memantine (Memantine Hcl 10 Mg Tablet) 10 mg PO BID [facility] Last Admin: 03/05/23 08:50 Dose: 10 mg Mirtazapine (Mirtazapine 7.5 Mg Tablet) 7.5 mg PO BEDTIME [facility] Last Admin: 03/04/23 20:29 Dose: 7.5 mg Quetiapine Fumarate (Quetiapine Fumarate 25 Mg Tablet) 25 mg PO Q6H PRN PRN Reason: agitation Quetiapine Fumarate (Quetiapine Fumarate 25 Mg Tablet) 25 mg PO TID [facility] Last Admin: 03/05/23 08:49 Dose: 25 mg Sertraline HCl (Sertraline Hcl 25 Mg Tablet) 75 mg PO DAILY [facility] Last Admin: 03/05/23 08:50 Dose: 75 mg Trazodone HCl (Trazodone Hcl 50 Mg Tablet) 50 mg PO BEDTIME PRN PRN Reason: Insomnia Last Admin: 03/05/23 02:32 Dose: 50 mg Trazodone HCl (Trazodone Hcl 50 Mg Tablet) 50 mg PO BEDTIME [facility] Last Admin: 03/04/23 20:29 Dose: 50 mg Urea (Urea 15 Gm Powder) 30 gm PO BID [facility] Physical Exam Vital Signs: Last Vital Signs Temp 96.9 F 03/05/23 08:00 Pulse 68 03/05/23 08:00 Resp 18 03/05/23 08:00 BP 118/60 03/05/23 08:00 Pulse Ox 98 03/05/23 08:00 O2 Del Method Room Air 03/05/23 08:00 BMI result Body Mass Index 22.9 Comfortable Neck is supple Lung: Air entry equal Heart: S1,S2, normal. No rub Abd: Soft. BS + NS : Alert.No asterexis Ext: No edema Results Lab Results 03/05/23 08:11 Lab results: Chemistry 03/03/23 03/04/23 03/04/23 07:20 09:21 15:26 Sodium 122 L 118 L* 121 L Potassium 4.1 4.0 4.6 Carbon Dioxide 21 L 23 23 BUN 16 16 37 H Creatinine 0.87 1.01 0.88 Calcium 9.0 9.1 9.5 03/04/23 03/05/23 20:44 08:11 Sodium 119 L* 125 L Potassium 4.3 Carbon Dioxide 23 BUN 44 H Creatinine 1.09 Calcium 10.0 Urine Studies 03/03/23 14:03 Urine Osmolality 607 Assessment and Plan (1) Hyponatremia: Status: Acute Plan 88-year-old man with hypotonic hyponatremia. Clinically appears euvolemic. He has a urine osmolality of more than 600 with a serum osmolality 260. There is impaired renal free water excretion. This could be due to the use of SSRIs. TSH is normal. Check serum cortisol in a.m.. Ordered Follow serum sodium every 6 hours. The goal is to correct serum sodium at a rate of 0.5-1 millimoles per L/hr and not exceed more than 8-10 millimoles in a 24 hour. Restrict oral free water intake to 1.2 L per 24 hours. Keep urea powder 30 g p.o. b.i.d. for now. There is an acceptable increase in blood urea nitrogen. If serum sodium does not improve we might have to hold the SSRI temporarily. I will continue to follow him along with the team. Thank you Time Spent With Patient Time: Total time managing care of this patient today ____ minutes. Procedures Date of Service Date of Service: 03/18/23
[2023-03-05] MEDS: Urea 15 GM POWDER 30 GM PO ×2 (10:35→21:01)
[2023-03-05 13:10] LABS: Sodium 125 mmol/L (135-145)
[2023-03-05 15:00] VITALS: BMI 27.3
[2023-03-05 18:00] VITALS: BP 103/50; PULSE 65; RESP 14
[2023-03-05 18:01] LABS: Sodium 126 mmol/L (135-145)
--- NOTE | 2023-03-05 18:44 | PC.NURSE ---
Tucker Thorne/Dr Bland/Dr Woodruff coordinating care due to low sodium levels. Urea 30 mg po bid ordered, labs ordered and reviewed. Sodium level ordered every 6 hours. Fluid restriction 1000ml daily maintained.
[2023-03-05] MEDS: Donepezil HCl 10 MG TABLET PO (21:02)
[2023-03-06 01:30] LABS: Sodium 126 mmol/L (135-145)
[2023-03-06 07:55] LABS: Sodium 129 mmol/L (135-145)
[2023-03-06 08:16] LABS: Cortisol Random 13.1 ug/dL
[2023-03-06 08:40] VITALS: BP 102/56; PULSE 64; RESP 20; TEMP 36.4; O2SAT 99
[2023-03-06] MEDS: Sertraline HCL 25 MG TABLET 75 MG PO (08:43)
[2023-03-06] MEDS: amLODIPine Besylate 10 MG TABLET PO (08:44)
[2023-03-06] MEDS: QUEtiapine Fumarate 25 MG TABLET PO ×3 (08:44→21:06)
[2023-03-06] MEDS: Urea 15 GM POWDER 30 GM PO ×2 (08:45→21:07)
[2023-03-06 08:50] LABS: Sodium 128 mmol/L (135-145)
[2023-03-06] MEDS: Memantine HCl 10 MG TABLET PO ×2 (09:05→21:06)
[2023-03-06 13:30] VITALS: BP 112/62; PULSE 66
--- NOTE | 2023-03-06 16:51 | HO.PSYCHPN ---
Subjective Subjective Date of Service: 03/06/23 Reason For Visit: F02.81 Subjective Notes: Conditional Voluntary Interim History: Per nursing, pt slept through the night. No behavioral concerns. Pt's Na today 128- Pt seen by nephrology, NA labs q6h, continue on fluid restriction, and UREA. Pt does present today with low BP, reports feeling whoozy more unsteady on his feet. ORTHO VS sitting 112/62, HR 66; standing 98/62 HR 72. Continue with fluid restriction 1200cc. No changes in pt's mentation- he reports feeling tired. He reports he is waiting for his and hopes to go home soon. No vomiting, no headache, gait changes. Review of Systems Review of Systems Unable to obtain detailed review of system. Patient is poor historian. All information was obtained from the chart. Yes Unobtainable due to mental status Mental Status Exam Mental Status Exam Narrative: Appearance: casually groomed, good hygiene, in NAD Behavior: irritable at times asking to go home Psychomotor: some increased agitation as pt request to leave hospital Speech: clear, normal rate/rhythm/volume, spontaneous TP: goal oriented, wanting to go home TC: no over psychosis or delusions, wanting to go home Mood: fine Affect: irritable SI: denies HI: denies VH/AH: none Delusions: none Memory/cog: alert, not oriented to situation, month, date or year. pending moca Diagnostics Vital Signs (24Hr): Vital Signs - 24 hr 03/05/23 18:00 03/06/23 08:40 03/06/23 13:30 Temperature 97.5 F Pulse Rate 65 64 66 Respiratory Rate 14 20 Blood Pressure 103/50 L 102/56 L 112/62 Pulse Oximetry 99 Oxygen Delivery Method Room Air BMI result Body Mass Index 27.3 Labs 03/06/23 08:28 Labs: Laboratory Results - last 48 hr 03/04/23 03/05/23 03/05/23 20:44 08:11 12:49 Sodium 119 L* 125 L 125 L Potassium 4.3 Chloride 93 L Carbon Dioxide 23 Anion Gap 13 BUN 44 H Creatinine 1.09 Estim Creat Clear Calc 46.9 Estimated GFR > 60 Random Glucose 87 Calcium 10.0 Random Cortisol 03/05/23 03/06/23 03/06/23 17:48 01:14 07:29 Sodium 126 L 126 L Potassium Chloride Carbon Dioxide Anion Gap BUN Creatinine Estim Creat Clear Calc Estimated GFR Random Glucose Calcium Random Cortisol 13.1 03/06/23 03/06/23 07:29 08:28 Sodium 129 L 128 L Potassium Chloride Carbon Dioxide Anion Gap BUN Creatinine Estim Creat Clear Calc Estimated GFR Random Glucose Calcium Random Cortisol Medications Medications Current Medications Acetaminophen (Acetaminophen 325 Mg Tablet) 650 mg PO Q6H PRN PRN Reason: Headache/Pain Mild Scale (1-3) Al Hydroxide/Mg Hydroxide (Magnesium Hydrox/Alum Hydrox 30 Ml Oral.Susp) 30 ml PO Q6H PRN PRN Reason: Heartburn/Nausea Amlodipine Besylate (Amlodipine Besylate 10 Mg Tablet) 10 mg PO DAILY [facility]; Protocol Last Admin: 03/06/23 08:44 Dose: 10 mg Donepezil HCl (Donepezil Hcl 10 Mg Tablet) 10 mg PO BEDTIME [facility] Last Admin: 03/05/23 21:02 Dose: 10 mg Hydroxyzine HCl (Hydroxyzine Hcl 25 Mg Tablet) 25 mg PO Q6H PRN PRN Reason: Anxiety Last Admin: 03/04/23 21:35 Dose: 25 mg Losartan Potassium (Losartan Potassium 50 Mg Tablet) 100 mg PO DAILY [facility]; Protocol Last Admin: 03/05/23 08:49 Dose: 100 mg Magnesium Hydroxide (Milk Of Magnesia 30 Ml Oral.Susp) 30 ml PO DAILY PRN PRN Reason: Constipation Memantine (Memantine Hcl 10 Mg Tablet) 10 mg PO BID [facility] Last Admin: 03/06/23 09:05 Dose: 10 mg Quetiapine Fumarate (Quetiapine Fumarate 25 Mg Tablet) 25 mg PO Q6H PRN PRN Reason: agitation Quetiapine Fumarate (Quetiapine Fumarate 25 Mg Tablet) 25 mg PO TID [facility] Last Admin: 03/06/23 14:32 Dose: 25 mg Sertraline HCl (Sertraline Hcl 25 Mg Tablet) 75 mg PO DAILY [facility] Last Admin: 03/06/23 08:43 Dose: 75 mg Trazodone HCl (Trazodone Hcl 50 Mg Tablet) 50 mg PO BEDTIME PRN PRN Reason: Insomnia Last Admin: 03/05/23 02:32 Dose: 50 mg Trazodone HCl (Trazodone Hcl 50 Mg Tablet) 50 mg PO BEDTIME [facility] Last Admin: 03/05/23 21:02 Dose: 50 mg Urea (Urea 15 Gm Powder) 30 gm PO BID [facility] Last Admin: 03/06/23 08:45 Dose: 30 gm Allergies Allergies Allergy/AdvReac Type Severity Reaction Status Date / Time Sulfa (Sulfonamide Allergy Severe Anaphylaxis Verified 02/23/23 15:04 Antibiotics) gabapentin [From Neurontin] Allergy Intermediate Rash Verified 02/23/23 15:04 oxycodone AdvReac Severe delirum Verified 02/23/23 15:04 hydromorphone [From Dilaudid] AdvReac Intermediate Vomiting Verified 02/23/23 15:04 Assessment & Plan Assessment & Plan (1) Major neurocognitive disorder due to multiple etiologies with behavioral disturbance: Status: Acute Code(s): F02.818 - Dementia in other diseases classified elsewhere, unspecified severity, with other behavioral disturbance Plan Mr. Rao is a 88 year-old male with hx of dementia of multiple etiologies who was brought to [facility] due to increase combative behaviors, innapropriate sexual advances to neighbor. In the ED, utox is negative. UA not indicative of infection. CBC and CMP grossly unremarkable. Pt not oriented to situation, month, date. He is able to recognize that this is hospital but does not know why he is here. is healthcare proxy- which will be bring copy of HCP form. PLAN 1. Admit to S1, CV, 15 minutes checks for safety 2. Start mood stbailizer for impulsive, disinhibited sexual behaviors- will try trileptal. 3. continue seroquel scheduled as well as prn for agitation 4. aftercare planning 5.obtain collateral information. 02/25- increase seroquel to 25mg po TID- monitor sedation, gait. continue trileptal- will check Na. 02/26 continue current medications, monitor for over sedation and therapeutic benefit. 02/27 continue tx. can consider increasing seroquel to 50mg po TID. 02/28: Consider increase Seroquel. 03/01:Continue current plan of care. 03/02 continue tx. will check Na tomorrow as pt on trileptal. 03/03- Hypotonic hyponatremia, d/c trileptal, start depakote 250mg po BID. ordered urine osmolality/sodium pending results. fluid restriction 1200cc. recheck NA tomorrow. 03/04- Na now 118. No changes in mentation, no vomiting, headache, pt does report feeling tired, no gait changes/abnormality- seen by hospitalist who consulted with nephrology recommended Urea 30g, recheck NA in 4 hrs today. Fluid restriction 1000cc. 03/05- seen by film librarian. Na 122- continue Urea 30gm po BID, fluid restriction to 1200cc. Na check q6h. will d/c depakote and remeron, avoid multiple agents that could worsen hyponatremia, until more stable. 03/06 Na 128. Nephrology following. amlodipine and losartan held due to low BP, ortho hotn, more unsteady gait. Monitor BP, Na, fluid restriction. Reason for continued inpatient stay Substantial Risk for: inability to function Time Spent With Patient Time: Total time managing care of this patient today ____ minutes.
[2023-03-06 20:15] VITALS: BP 102/58; PULSE 65; RESP 18; TEMP 36.7; O2SAT 95
[2023-03-06] MEDS: Donepezil HCl 10 MG TABLET PO (21:07)
[2023-03-06] MEDS: traZODone HCL 50 MG TABLET PO (21:07)
[2023-03-07 08:20] VITALS: BP 110/63; PULSE 70; RESP 20; TEMP 36.1; O2SAT 98
[2023-03-07] MEDS: Sertraline HCL 25 MG TABLET 75 MG PO (09:44)
[2023-03-07] MEDS: Memantine HCl 10 MG TABLET PO ×2 (09:44→20:08)
[2023-03-07] MEDS: QUEtiapine Fumarate 25 MG TABLET PO ×3 (09:44→20:08)
[2023-03-07] MEDS: Urea 15 GM POWDER 30 GM PO ×2 (09:45→20:09)
--- NOTE | 2023-03-07 16:01 | HO.PSYCHPN ---
Subjective Subjective Date of Service: 03/07/23 Reason For Visit: F02.81 Interim History: Pt seen and discussed in team meeting. Records and plans reviewed. Team reports no behavioral issues of concern. Pt with hyponatremia, last Na 128. Will repeat 03/08. 1200cc fluid restriction in place. Awake, resting in bed, calm, cooperative, comfortable he reports. Medication Compliance: Yes Side effects from medications: Yes (hyponatremia) Attending Groups: Intermittent Review of Systems Acute medical concerns: No Medical Review of Systems: unchanged Mental Status Exam Mental Status Exam Patient Appearance: Fatigued Patient Orientation: Person and Situation (I would rather be at my home.) Level of Consciousness: Drowsy and Alert Patient Behavior: Talkative and Good Eye Contact Mood Description: Calm Affect Description: Calm Patient Cognition Impaired: Yes Ability to Follow Directions: Fair Speech Pattern: Spontaneous Speech and Long Pauses Memory Description: Remote Impaired, Immediate Impaired and Episodic Impaired Hallucinations: None Delusions: Not Present Thought Process: Confusion Thought Content: positive for [place] Depressive Symptoms: Increased Fatigue Judgement: Poor Diagnostics Vital Signs (24Hr): Vital Signs - 24 hr 03/06/23 20:15 03/07/23 08:20 Temperature 98.1 F 97.0 F Pulse Rate 65 70 Respiratory Rate 18 20 Blood Pressure 102/58 L 110/63 Pulse Oximetry 95 98 Oxygen Delivery Method Room Air Room Air BMI result Body Mass Index 27.3 Labs 03/06/23 08:28 Labs: Laboratory Results - last 48 hr 03/05/23 03/06/23 03/06/23 17:48 01:14 07:29 Sodium 126 L 126 L Random Cortisol 13.1 03/06/23 03/06/23 07:29 08:28 Sodium 129 L 128 L Random Cortisol Medications Medications Current Medications Acetaminophen (Acetaminophen 325 Mg Tablet) 650 mg PO Q6H PRN PRN Reason: Headache/Pain Mild Scale (1-3) Al Hydroxide/Mg Hydroxide (Magnesium Hydrox/Alum Hydrox 30 Ml Oral.Susp) 30 ml PO Q6H PRN PRN Reason: Heartburn/Nausea Amlodipine Besylate (Amlodipine Besylate 10 Mg Tablet) 10 mg PO DAILY [facility]; Protocol Last Admin: 03/06/23 08:44 Dose: 10 mg Donepezil HCl (Donepezil Hcl 10 Mg Tablet) 10 mg PO BEDTIME [facility] Last Admin: 03/06/23 21:07 Dose: 10 mg Hydroxyzine HCl (Hydroxyzine Hcl 25 Mg Tablet) 25 mg PO Q6H PRN PRN Reason: Anxiety Last Admin: 03/04/23 21:35 Dose: 25 mg Losartan Potassium (Losartan Potassium 50 Mg Tablet) 100 mg PO DAILY [facility]; Protocol Last Admin: 03/05/23 08:49 Dose: 100 mg Magnesium Hydroxide (Milk Of Magnesia 30 Ml Oral.Susp) 30 ml PO DAILY PRN PRN Reason: Constipation Memantine (Memantine Hcl 10 Mg Tablet) 10 mg PO BID [facility] Last Admin: 03/07/23 09:44 Dose: 10 mg Quetiapine Fumarate (Quetiapine Fumarate 25 Mg Tablet) 25 mg PO Q6H PRN PRN Reason: agitation Quetiapine Fumarate (Quetiapine Fumarate 25 Mg Tablet) 25 mg PO TID [facility] Last Admin: 03/07/23 15:58 Dose: 25 mg Sertraline HCl (Sertraline Hcl 25 Mg Tablet) 75 mg PO DAILY [facility] Last Admin: 03/07/23 09:44 Dose: 75 mg Trazodone HCl (Trazodone Hcl 50 Mg Tablet) 50 mg PO BEDTIME PRN PRN Reason: Insomnia Last Admin: 03/05/23 02:32 Dose: 50 mg Trazodone HCl (Trazodone Hcl 50 Mg Tablet) 50 mg PO BEDTIME [facility] Last Admin: 03/06/23 21:07 Dose: 50 mg Urea (Urea 15 Gm Powder) 30 gm PO BID [facility] Last Admin: 03/07/23 09:45 Dose: 30 gm Allergies Allergies Allergy/AdvReac Type Severity Reaction Status Date / Time Sulfa (Sulfonamide Allergy Severe Anaphylaxis Verified 02/23/23 15:04 Antibiotics) gabapentin [From Neurontin] Allergy Intermediate Rash Verified 02/23/23 15:04 oxycodone AdvReac Severe delirum Verified 02/23/23 15:04 hydromorphone [From Dilaudid] AdvReac Intermediate Vomiting Verified 02/23/23 15:04 Assessment & Plan Assessment & Plan (1) Major neurocognitive disorder due to multiple etiologies with behavioral disturbance: Status: Acute Code(s): F02.818 - Dementia in other diseases classified elsewhere, unspecified severity, with other behavioral disturbance Plan Mr. Rao is a 88 year-old male with hx of dementia of multiple etiologies who was brought to [facility] due to increase combative behaviors, innapropriate sexual advances to neighbor. In the ED, utox is negative. UA not indicative of infection. CBC and CMP grossly unremarkable. Pt not oriented to situation, month, date. He is able to recognize that this is hospital but does not know why he is here. is healthcare proxy- which will be bring copy of HCP form. PLAN 1. Admit to S1, CV, 15 minutes checks for safety 2. Start mood stbailizer for impulsive, disinhibited sexual behaviors- will try trileptal. 3. continue seroquel scheduled as well as prn for agitation 4. aftercare planning 5.obtain collateral information. 02/25- increase seroquel to 25mg po TID- monitor sedation, gait. continue trileptal- will check Na. 02/26 continue current medications, monitor for over sedation and therapeutic benefit. 02/27 continue tx. can consider increasing seroquel to 50mg po TID. 02/28: Consider increase Seroquel. 03/01:Continue current plan of care. 03/02 continue tx. will check Na tomorrow as pt on trileptal. 03/03- Hypotonic hyponatremia, d/c trileptal, start depakote 250mg po BID. ordered urine osmolality/sodium pending results. fluid restriction 1200cc. recheck NA tomorrow. 03/04- Na now 118. No changes in mentation, no vomiting, headache, pt does report feeling tired, no gait changes/abnormality- seen by hospitalist who consulted with nephrology recommended Urea 30g, recheck NA in 4 hrs today. Fluid restriction 1000cc. 03/05- seen by printing assistant. Na 122- continue Urea 30gm po BID, fluid restriction to 1200cc. Na check q6h. will d/c depakote and remeron, avoid multiple agents that could worsen hyponatremia, until more stable. 03/06 Na 128. Nephrology following. amlodipine and losartan held due to low BP, ortho hotn, more unsteady gait. Monitor BP, Na, fluid restriction. 03/07/23: Na 03/07/23. Informed Consent: does not understand Reason for continued inpatient stay Substantial Risk for: med/psych decompensation Time Spent With Patient Time: Total time managing care of this patient today ____ minutes.
[2023-03-07 18:00] VITALS: BP 136/60; PULSE 66; RESP 18; TEMP 35.9; O2SAT 97
[2023-03-07] MEDS: Donepezil HCl 10 MG TABLET PO (20:08)
[2023-03-07] MEDS: traZODone HCL 50 MG TABLET PO (20:09)
[2023-03-08 08:44] VITALS: BP 139/68; PULSE 82; RESP 18; TEMP 36.2; O2SAT 97
[2023-03-08] MEDS: Memantine HCl 10 MG TABLET PO ×2 (08:52→20:21)
[2023-03-08] MEDS: Sertraline HCL 25 MG TABLET 75 MG PO (08:52)
[2023-03-08] MEDS: QUEtiapine Fumarate 25 MG TABLET PO ×3 (08:52→20:20)
[2023-03-08] MEDS: Urea 15 GM POWDER 30 GM PO ×2 (08:55→20:20)
--- NOTE | 2023-03-08 09:03 | HO.PSYCHPN ---
Subjective Subjective Date of Service: 03/08/23 Reason For Visit: F02.81 Interim History: Pt seen, reviewed with team. Na 135. Difficulty with full compliance with urea powder. Team reports he took one half dose last night and today. Fluid restriction continues. Mental Status Exam Mental Status Exam Patient Appearance: Fatigued Patient Orientation: Person and Situation (I would rather be at my home.) Level of Consciousness: Drowsy and Alert Patient Behavior: Talkative and Good Eye Contact Mood Description: Calm Affect Description: Calm Patient Cognition Impaired: Yes Ability to Follow Directions: Fair Speech Pattern: Spontaneous Speech and Long Pauses Memory Description: Remote Impaired, Immediate Impaired and Episodic Impaired Hallucinations: None Delusions: Not Present Thought Process: Confusion Thought Content: positive for [place] Depressive Symptoms: Increased Fatigue Judgement: Poor Diagnostics Vital Signs (24Hr): Vital Signs - 24 hr 03/07/23 18:00 03/08/23 08:44 Temperature 96.6 F L 97.2 F Pulse Rate 66 82 Respiratory Rate 18 18 Blood Pressure 136/60 139/68 Pulse Oximetry 97 97 Oxygen Delivery Method Room Air Room Air BMI result Body Mass Index 27.3 Labs 03/08/23 07:45 Labs: Laboratory Results - last 48 hr 03/08/23 07:45 Sodium 135 Potassium 4.2 Chloride 100 Carbon Dioxide 26 Anion Gap 13 BUN 73 H Creatinine 1.34 Estim Creat Clear Calc 38.2 Estimated GFR 51 Random Glucose 101 Calcium 10.5 H Medications Medications Current Medications Acetaminophen (Acetaminophen 325 Mg Tablet) 650 mg PO Q6H PRN PRN Reason: Headache/Pain Mild Scale (1-3) Al Hydroxide/Mg Hydroxide (Magnesium Hydrox/Alum Hydrox 30 Ml Oral.Susp) 30 ml PO Q6H PRN PRN Reason: Heartburn/Nausea Amlodipine Besylate (Amlodipine Besylate 10 Mg Tablet) 10 mg PO DAILY [facility]; Protocol Last Admin: 03/06/23 08:44 Dose: 10 mg Donepezil HCl (Donepezil Hcl 10 Mg Tablet) 10 mg PO BEDTIME [facility] Last Admin: 03/07/23 20:08 Dose: 10 mg Hydroxyzine HCl (Hydroxyzine Hcl 25 Mg Tablet) 25 mg PO Q6H PRN PRN Reason: Anxiety Last Admin: 03/04/23 21:35 Dose: 25 mg Losartan Potassium (Losartan Potassium 50 Mg Tablet) 100 mg PO DAILY [facility]; Protocol Last Admin: 03/05/23 08:49 Dose: 100 mg Magnesium Hydroxide (Milk Of Magnesia 30 Ml Oral.Susp) 30 ml PO DAILY PRN PRN Reason: Constipation Memantine (Memantine Hcl 10 Mg Tablet) 10 mg PO BID [facility] Last Admin: 03/08/23 08:52 Dose: 10 mg Quetiapine Fumarate (Quetiapine Fumarate 25 Mg Tablet) 25 mg PO Q6H PRN PRN Reason: agitation Quetiapine Fumarate (Quetiapine Fumarate 25 Mg Tablet) 25 mg PO TID [facility] Last Admin: 03/08/23 08:52 Dose: 25 mg Sertraline HCl (Sertraline Hcl 25 Mg Tablet) 75 mg PO DAILY [facility] Last Admin: 03/08/23 08:52 Dose: 75 mg Trazodone HCl (Trazodone Hcl 50 Mg Tablet) 50 mg PO BEDTIME PRN PRN Reason: Insomnia Last Admin: 03/05/23 02:32 Dose: 50 mg Trazodone HCl (Trazodone Hcl 50 Mg Tablet) 50 mg PO BEDTIME [facility] Last Admin: 03/07/23 20:09 Dose: 50 mg Urea (Urea 15 Gm Powder) 30 gm PO BID [facility] Last Admin: 03/08/23 08:55 Dose: 15 gm Allergies Allergies Allergy/AdvReac Type Severity Reaction Status Date / Time Sulfa (Sulfonamide Allergy Severe Anaphylaxis Verified 02/23/23 15:04 Antibiotics) gabapentin [From Neurontin] Allergy Intermediate Rash Verified 02/23/23 15:04 oxycodone AdvReac Severe delirum Verified 02/23/23 15:04 hydromorphone [From Dilaudid] AdvReac Intermediate Vomiting Verified 02/23/23 15:04 Assessment & Plan Assessment & Plan (1) Major neurocognitive disorder due to multiple etiologies with behavioral disturbance: Status: Acute Code(s): F02.818 - Dementia in other diseases classified elsewhere, unspecified severity, with other behavioral disturbance Plan Mr. Rao is a 88 year-old male with hx of dementia of multiple etiologies who was brought to [facility] due to increase combative behaviors, innapropriate sexual advances to neighbor. In the ED, utox is negative. UA not indicative of infection. CBC and CMP grossly unremarkable. Pt not oriented to situation, month, date. He is able to recognize that this is hospital but does not know why he is here. is healthcare proxy- which will be bring copy of HCP form. PLAN 1. Admit to S1, CV, 15 minutes checks for safety 2. Start mood stbailizer for impulsive, disinhibited sexual behaviors- will try trileptal. 3. continue seroquel scheduled as well as prn for agitation 4. aftercare planning 5.obtain collateral information. 02/25- increase seroquel to 25mg po TID- monitor sedation, gait. continue trileptal- will check Na. 02/26 continue current medications, monitor for over sedation and therapeutic benefit. 02/27 continue tx. can consider increasing seroquel to 50mg po TID. 02/28: Consider increase Seroquel. 03/01:Continue current plan of care. 03/02 continue tx. will check Na tomorrow as pt on trileptal. 03/03- Hypotonic hyponatremia, d/c trileptal, start depakote 250mg po BID. ordered urine osmolality/sodium pending results. fluid restriction 1200cc. recheck NA tomorrow. 03/04- Na now 118. No changes in mentation, no vomiting, headache, pt does report feeling tired, no gait changes/abnormality- seen by hospitalist who consulted with nephrology recommended Urea 30g, recheck NA in 4 hrs today. Fluid restriction 1000cc. 03/05- seen by credit risk associate. Na 122- continue Urea 30gm po BID, fluid restriction to 1200cc. Na check q6h. will d/c depakote and remeron, avoid multiple agents that could worsen hyponatremia, until more stable. 03/06 Na 128. Nephrology following. amlodipine and losartan held due to low BP, ortho hotn, more unsteady gait. Monitor BP, Na, fluid restriction. 03/07/23: Na 03/07/23. 03/08/23: Na 135. Continue current regime and plan of care. Reason for continued inpatient stay Substantial Risk for: rapid decompensation Time Spent With Patient Time: Total time managing care of this patient today ____ minutes.
--- NOTE | 2023-03-08 10:47 | PC.NURSE ---
Bianca Lynn NP notified that Eugenio only took 1/2 dose (15 gm) of urea and sodium level 135.
[2023-03-08 18:00] VITALS: BP 151/71; PULSE 84; RESP 16; TEMP 36.2; O2SAT 96
[2023-03-08] MEDS: Donepezil HCl 10 MG TABLET PO (20:20)
[2023-03-08] MEDS: traZODone HCL 50 MG TABLET PO (20:21)
[2023-03-09 08:20] VITALS: BP 116/64; PULSE 68; RESP 18; TEMP 36.6; O2SAT 98
[2023-03-09] MEDS: Sertraline HCL 25 MG TABLET 75 MG PO (08:52)
[2023-03-09] MEDS: Memantine HCl 10 MG TABLET PO ×2 (08:52→20:06)
[2023-03-09] MEDS: QUEtiapine Fumarate 25 MG TABLET PO ×3 (08:53→20:05)
[2023-03-09] MEDS: Urea 15 GM POWDER 30 GM PO (08:53)
--- NOTE | 2023-03-09 10:40 | HO.PSYCHPN ---
Subjective Subjective Date of Service: 03/09/23 Reason For Visit: F02.81 Subjective Notes: Conditional Voluntary Interim History: Pt slept through the night. He asks about when he can go back home. He denies SI/HI. No inappropriate behaviors, slightly irritable but redirectable. Pt's Na 135 today, Per Dr. Guidry (nephrology, okay to d/c UREA note BUN today 73). Continue fluid restriction to 1500cc. No behavioral concerns. Diagnostics Vital Signs (24Hr): Vital Signs - 24 hr 03/08/23 18:00 03/09/23 08:20 Temperature 97.2 F 97.9 F Pulse Rate 84 68 Respiratory Rate 16 18 Blood Pressure 151/71 H 116/64 Pulse Oximetry 96 98 Oxygen Delivery Method Room Air Room Air BMI result Body Mass Index 27.3 Labs 03/08/23 07:45 Labs: Laboratory Results - last 48 hr 03/08/23 07:45 Sodium 135 Potassium 4.2 Chloride 100 Carbon Dioxide 26 Anion Gap 13 BUN 73 H Creatinine 1.34 Estim Creat Clear Calc 38.2 Estimated GFR 51 Random Glucose 101 Calcium 10.5 H Medications Medications Current Medications Acetaminophen (Acetaminophen 325 Mg Tablet) 650 mg PO Q6H PRN PRN Reason: Headache/Pain Mild Scale (1-3) Al Hydroxide/Mg Hydroxide (Magnesium Hydrox/Alum Hydrox 30 Ml Oral.Susp) 30 ml PO Q6H PRN PRN Reason: Heartburn/Nausea Amlodipine Besylate (Amlodipine Besylate 10 Mg Tablet) 10 mg PO DAILY [facility]; Protocol Last Admin: 03/06/23 08:44 Dose: 10 mg Donepezil HCl (Donepezil Hcl 10 Mg Tablet) 10 mg PO BEDTIME [facility] Last Admin: 03/08/23 20:20 Dose: 10 mg Hydroxyzine HCl (Hydroxyzine Hcl 25 Mg Tablet) 25 mg PO Q6H PRN PRN Reason: Anxiety Last Admin: 03/04/23 21:35 Dose: 25 mg Losartan Potassium (Losartan Potassium 50 Mg Tablet) 100 mg PO DAILY [facility]; Protocol Last Admin: 03/05/23 08:49 Dose: 100 mg Magnesium Hydroxide (Milk Of Magnesia 30 Ml Oral.Susp) 30 ml PO DAILY PRN PRN Reason: Constipation Memantine (Memantine Hcl 10 Mg Tablet) 10 mg PO BID [facility] Last Admin: 07/03/23 08:52 Dose: 10 mg Quetiapine Fumarate (Quetiapine Fumarate 25 Mg Tablet) 25 mg PO Q6H PRN PRN Reason: agitation Quetiapine Fumarate (Quetiapine Fumarate 25 Mg Tablet) 25 mg PO TID [facility] Last Admin: 03/09/23 08:53 Dose: 25 mg Sertraline HCl (Sertraline Hcl 25 Mg Tablet) 75 mg PO DAILY [facility] Last Admin: 03/09/23 08:52 Dose: 75 mg Trazodone HCl (Trazodone Hcl 50 Mg Tablet) 50 mg PO BEDTIME PRN PRN Reason: Insomnia Last Admin: 03/05/23 02:32 Dose: 50 mg Trazodone HCl (Trazodone Hcl 50 Mg Tablet) 50 mg PO BEDTIME [facility] Last Admin: 03/08/23 20:21 Dose: 50 mg Urea (Urea 15 Gm Powder) 30 gm PO BID [facility] Last Admin: 03/09/23 08:53 Dose: 30 gm Allergies Allergies Allergy/AdvReac Type Severity Reaction Status Date / Time Sulfa (Sulfonamide Allergy Severe Anaphylaxis Verified 02/23/23 15:04 Antibiotics) gabapentin [From Neurontin] Allergy Intermediate Rash Verified 02/23/23 15:04 oxycodone AdvReac Severe delirum Verified 02/23/23 15:04 hydromorphone [From Dilaudid] AdvReac Intermediate Vomiting Verified 02/23/23 15:04 Assessment & Plan Assessment & Plan (1) Major neurocognitive disorder due to multiple etiologies with behavioral disturbance: Status: Acute Code(s): F02.818 - Dementia in other diseases classified elsewhere, unspecified severity, with other behavioral disturbance Plan Mr. Rao is a 88 year-old male with hx of dementia of multiple etiologies who was brought to [facility] due to increase combative behaviors, innapropriate sexual advances to neighbor. In the ED, utox is negative. UA not indicative of infection. CBC and CMP grossly unremarkable. Pt not oriented to situation, month, date. He is able to recognize that this is hospital but does not know why he is here. is healthcare proxy- which will be bring copy of HCP form. PLAN 1. Admit to S1, CV, 15 minutes checks for safety 2. Start mood stbailizer for impulsive, disinhibited sexual behaviors- will try trileptal. 3. continue seroquel scheduled as well as prn for agitation 4. aftercare planning 5.obtain collateral information. 02/25- increase seroquel to 25mg po TID- monitor sedation, gait. continue trileptal- will check Na. 02/26 continue current medications, monitor for over sedation and therapeutic benefit. 02/27 continue tx. can consider increasing seroquel to 50mg po TID. 02/28: Consider increase Seroquel. 03/01:Continue current plan of care. 03/02 continue tx. will check Na tomorrow as pt on trileptal. 03/03- Hypotonic hyponatremia, d/c trileptal, start depakote 250mg po BID. ordered urine osmolality/sodium pending results. fluid restriction 1200cc. recheck NA tomorrow. 03/04- Na now 118. No changes in mentation, no vomiting, headache, pt does report feeling tired, no gait changes/abnormality- seen by hospitalist who consulted with nephrology recommended Urea 30g, recheck NA in 4 hrs today. Fluid restriction 1000cc. 03/05- seen by house detective. Na 122- continue Urea 30gm po BID, fluid restriction to 1200cc. Na check q6h. will d/c depakote and remeron, avoid multiple agents that could worsen hyponatremia, until more stable. 03/06 Na 128. Nephrology following. amlodipine and losartan held due to low BP, ortho hotn, more unsteady gait. Monitor BP, Na, fluid restriction. 03/07/23: Na 03/07/23. 03/08/23: Na 135. Continue current regime and plan of care. 03/09 continue tx. d/c UREA per nephrology. continue fluid restriction of 1500cc. Reason for continued inpatient stay Substantial Risk for: inability to function Time Spent With Patient Time: Total time managing care of this patient today ____ minutes.
[2023-03-09 18:00] VITALS: BP 166/80; PULSE 82; RESP 18; TEMP 36.2; O2SAT 95
[2023-03-09] MEDS: Donepezil HCl 10 MG TABLET PO (20:06)
[2023-03-09] MEDS: traZODone HCL 50 MG TABLET PO (20:06)
[2023-03-10 08:16] VITALS: BP 167/73; PULSE 87; RESP 18; TEMP 36.6; O2SAT 99
[2023-03-10] MEDS: QUEtiapine Fumarate 25 MG TABLET PO (08:36)
[2023-03-10] MEDS: Memantine HCl 10 MG TABLET PO (08:36)
[2023-03-10] MEDS: Sertraline HCL 25 MG TABLET 75 MG PO (08:37)
--- NOTE | 2023-03-10 10:11 | PM.PSYDC ---
DS: Providers Provider Date of Service: 03/10/23 Date of admission: 02/23/23 14:53 Primary care physician: HAMMAD Hess Consults: 02/23/23 15:04 Consult to Hospitalist Routine Comment: Consulting Provider: Hospitalist Reason For Exam: medical H&P 03/04/23 13:41 Consult to Nephrology Routine Consulting Provider: Abraham Woodruff Reason for consultation: Hyponatremia DS: Diagnosis Discharge Diagnosis (1) Major neurocognitive disorder due to multiple etiologies with behavioral disturbance: Status: Acute DS: Medications Discharge Medications Home Medications: Previous Rx's Medication Instructions Recorded amlodipine 10 mg tablet 10 mg PO DAILY #30 tabs 03/10/23 donepezil 10 mg tablet 10 mg PO BEDTIME #30 tabs 03/10/23 losartan 100 mg tablet 100 mg PO DAILY #30 tabs 03/10/23 memantine 10 mg tablet (Namenda) 10 mg PO BID #60 tabs 03/10/23 quetiapine 25 mg tablet 25 mg PO BID PRN agitation #60 tabs 03/10/23 quetiapine 25 mg tablet 25 mg PO TID #90 tabs 03/10/23 sertraline 50 mg tablet 50 mg PO DAILY #30 tabs 03/10/23 trazodone 50 mg tablet 50 mg PO BEDTIME #30 tabs 03/10/23 trazodone 50 mg tablet 50 mg PO BEDTIME PRN Insomnia #30 03/10/23 tabs Mental Status Exam Mental Status Exam Narrative: Appearance: casually groomed, good hygiene, in NAD Behavior: friendly Psychomotor: some increased agitation as pt request to leave hospital Speech: clear, normal rate/rhythm/volume, spontaneous TP: goal oriented, wanting to go home TC: no over psychosis or delusions, wanting to go home Mood: fine Affect: congruent SI: denies HI: denies VH/AH: none Delusions: none Memory/cog: alert, not oriented to situation, month, date or year. pending moca Data Data Completed and Pending Completed studies during hospitalization [Text1]: 03/03/23 03/03/23 03/03/23 10:10 14:03 14:03 Sodium Potassium Chloride Carbon Dioxide Anion Gap BUN Creatinine Estim Creat Clear Calc Estimated GFR Random Glucose Osmolality 260 L Calcium Total Bilirubin AST ALT Alkaline Phosphatase Total Protein Albumin Random Cortisol Urine Osmolality 607 Ur Random Sodium < 20.0 03/04/23 03/04/23 03/04/23 09:21 15:26 20:44 Sodium 118 L* 121 L 119 L* Potassium 4.0 4.6 Chloride 89 L 91 L Carbon Dioxide 23 23 Anion Gap 10 L 12 BUN 16 37 H Creatinine 1.01 0.88 Estim Creat Clear Calc 50.6 58.1 Estimated GFR > 60 > 60 Random Glucose 91 95 Osmolality Calcium 9.1 9.5 Total Bilirubin 0.7 AST 24 ALT 22 Alkaline Phosphatase 90 Total Protein 6.9 Albumin 3.8 Random Cortisol Urine Osmolality Ur Random Sodium 03/05/23 03/05/23 03/05/23 08:11 12:49 17:48 Sodium 125 L 125 L 126 L Potassium 4.3 Chloride 93 L Carbon Dioxide 23 Anion Gap 13 BUN 44 H Creatinine 1.09 Estim Creat Clear Calc 46.9 Estimated GFR > 60 Random Glucose 87 Osmolality Calcium 10.0 Total Bilirubin AST ALT Alkaline Phosphatase Total Protein Albumin Random Cortisol Urine Osmolality Ur Random Sodium 03/06/23 03/06/23 03/06/23 01:14 07:29 07:29 Sodium 126 L 129 L Potassium Chloride Carbon Dioxide Anion Gap BUN Creatinine Estim Creat Clear Calc Estimated GFR Random Glucose Osmolality Calcium Total Bilirubin AST ALT Alkaline Phosphatase Total Protein Albumin Random Cortisol 13.1 Urine Osmolality Ur Random Sodium 03/06/23 03/08/23 03/09/23 08:28 07:45 11:39 Sodium 128 L 135 135 Potassium 4.2 4.8 Chloride 100 101 Carbon Dioxide 26 26 Anion Gap 13 13 BUN 73 H 75 H Creatinine 1.34 1.25 Estim Creat Clear Calc 38.2 41.0 Estimated GFR 51 55 Random Glucose 101 109 Osmolality Calcium 10.5 H 10.2 Total Bilirubin 0.6 AST 22 ALT 28 Alkaline Phosphatase 82 Total Protein 7.7 Albumin 4.1 Random Cortisol Urine Osmolality Ur Random Sodium DS: Summary Hospital Course Hospital Course: Mr. Rao is a 88 year-old male with hx of dementia who was brought to [facility] ED due to increase agitation, innappropiate sexual remarks to neighbor, masturbating in different parts of the home. Per ED note, pt lives with his . In the ED, pt denied suicidal or homicidal ideation. No signs of psychosis. On the unit, pt not oriented to month, situation or year. He reports he is not sure how long he has been here. He reports my put me here. He asks if he can go home soon. Pt explained concerns in terms of impulsive, sexually inappropriate behaviors and combative behaviors at home. He denies SI/HI. He asks again if he is going home today. Further collateral information from who spoke with SOPHIA Reveles- reports pt with memory/cog impairments since 2014. Most recent disinhibited behaviors such sexually inappropriate behaviors towards neighbor, masturbating around the house, sexually inappropriate comments to granddaughter and increasingly more combative.? Past Psychiatric History: Inpatient: none prior OP: none Past medication trials: seroquel, sertraline HOSPITAL COURSE On the unit, pt was admitted on a CV and placed on 15 minutes checks for safety. Pt had some some inappropriate sexualized behaviors towards female peer. He was able to be redirected. After discussing risks, benefits and alternative treatment options, pt was started on trileptal and seroquel. His behaviors was much less intrusive and less sexualized. However, pt had hypotonic hyponatremia, with serum osmolality of less than 260 and urine osmolality greater than 100, showing impaired Status at Discharge Cognitive/behavioral status at discharge: Pt less irritable, less impulsive. No SI/HI. No aggression towards self or others. Pt sleeping and eating well. No signs of psychosis or delusions. Functional status at discharge: independent ambulation Overall status at discharge: patient is progressing back to baseline Time Spent with Patient Time attestation: Total time managing care of this patient today _30___ minutes. Time spent: Greater than 30 minutes Discharge Plan Discharge Anticipated Discharge Date/Time: 03/10/23 10:00 Patient Disposition: Home, Self-Care Discharge Diagnosis: Major Neurocognitive Disorder Referrals: [facility] SOFTWARE BUSINESS ANALYST [Other] - 03/19/23 11:00 am (Your first appointment for psychiatry with Karen Leach NP is scheduled for 03/19/23 ay 1100am. ) [facility] [Other] - 1 Week (Referral placed for private homecare and software development engineer. [facility] to contact you and set up home visit for assessment. ) Dr Guzman union carpenter [Other] - 1 Week (Calls placed and appointment requested for PCP follow up with Dr Guzman. Please contact for follow up appointment date and time. ) [facility] [Other] - 1 Week (Please call [facility] and ask for Shilpa to set up date and time for tour and trial day for program and day, but Thursday. ) Discharge Medications: New donepezil 10 mg Tablet 10 mg PO BEDTIME Qty: 30 0RF amlodipine 10 mg Tablet 10 mg PO DAILY Qty: 30 0RF Protocol: Hold for SBP< HOLD for SBP < : 90 losartan 100 mg tablet 100 mg PO DAILY Qty: 30 0RF quetiapine 25 mg Tablet 25 mg PO BID PRN (Reason: agitation) Qty: 60 0RF quetiapine 25 mg Tablet 25 mg PO TID Qty: 90 0RF trazodone 50 mg Tablet 50 mg PO BEDTIME Qty: 30 0RF trazodone 50 mg Tablet 50 mg PO BEDTIME PRN (Reason: Insomnia) Qty: 30 0RF sertraline 50 mg Tablet 50 mg PO DAILY Qty: 30 0RF memantine [Namenda] 10 mg Tablet 10 mg PO BID Qty: 60 0RF Discontinued donepezil 10 mg Tablet 10 mg PO BEDTIME Patient Comments: last filled 12/31/22 #90 at [facility] amlodipine 10 mg Tablet 10 mg PO DAILY Patient Comments: last filled 02/04/23 #90 at [facility] losartan 100 mg Tablet 100 mg PO DAILY Patient Comments: last filled 02/04/23 #90 at [facility] memantine 10 mg Tablet 10 mg PO BID Patient Comments: last filled 12/06/22 #90 at [facility] mirtazapine 7.5 mg Tablet 7.5 mg PO BEDTIME Patient Comments: Last filled at [facility] 07/10/22 #90 quetiapine 25 mg Tablet 12.5 mg PO BID Patient Comments: Last filled 01/29/23 30 day supply [facility] trazodone 50 mg Tablet 50 mg PO BEDTIME Patient Comments: Last filled 08/04/22 #90 [facility] risperidone [Risperdal] 0.25 mg Tablet 0.25 mg PO BEDTIME Patient Comments: Last filled 01/15/23 [facility] #60 risperidone [Risperdal] 0.25 mg Tablet 0.125 mg PO BID Patient Comments: Last filled 01/15/23 [facility] #60 Rx Instructions: 1/2 tab in am and 1/2 tab at lunch sertraline 50 mg Tablet 75 mg PO DAILY Patient Comments: Last filled 02/04/23 30 day supply [facility] Discharge Orders: Discharge Order (Routine); Ordered 03/10/23 Ordered By: Sayra Thorne Diet: fluid restriction 1200cc Activity on Discharge: As tolerated Stand Alone Forms: Patient Portal Discharge page Care Plan Goals: 1. Maintain mood 2. No SI/HI 3. Less impulsive, explosive behaviors, Health Concerns: Hyponatremia secondary to psychotropic medications. Pt to follow up with PCP. Continue fluid restriction to 1200cc. Plan of Treatment: 1. Take medications as prescribed 2. Continue fluid restriction of 1200cc. 3. Go to nearest ED or call 911 in event of emergency Assessment: Pt less irritable. Sleeping and eating well. No aggression towards self or others. No SI/HI. No psychosis.
== END 2023-03-10 11:40 | disposition home or self-care (01) | DRG 884 ==
PROVIDERS: Internal Medicine; Internal Medicine Hypertension Specialist; Physician Assistant; Social Worker; Student in an Organized Health Care Education/Training Program; Admitting Provider Psychiatry & Neurology Psychiatry; PCP Physician Assistant Medical; Visit Provider Psychiatry & Neurology Psychiatry
DX: F03.A18 Unspecified dementia, mild, with other behavioral disturbance (principal); Z87.891 Personal history of nicotine dependence; Z79.899 Other long term (current) drug therapy
CPT/HCPCS: 36415; 80048; 80053; 80061; 82533; 82607; 82746; 83036; 83930; 83935; 84295; 84300; 84443

== ENCOUNTER 2023-05-08 09:23 | Outpatient (AMB) | payer MEDICARE, SELFPAY ==
--- NOTE | 2023-05-08 10:09 | AM.OFFWIN_ITS ---
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 Note: pt is here for possible uti Patient Tobacco Use Status: Former Tobacco user Allergies Sulfa (Sulfonamide Antibiotics) Allergy (Severe, Verified 05/08/23 10:44) Anaphylaxis gabapentin [From Neurontin] Allergy (Intermediate, Verified 05/08/23 10:44) Rash oxycodone Adverse Reaction (Severe, Verified 05/08/23 10:44) delirum hydromorphone [From Dilaudid] Adverse Reaction (Intermediate, Verified 05/08/23 10:44) Vomiting Medication List - Last Reconciled 05/08/23 by Dakota Sandoval MD amlodipine 10 mg See Protocol PO DAILY losartan 100 mg PO DAILY quetiapine 50 mg PO BID PRN quetiapine 50 - 100 mg PO TID trazodone 50 mg PO BEDTIME Do you need a note to return to daycare/school/sports/work: No HPI 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 Patient is having difficulty voiding over the last 2 days. He has vascular dementia. Patient reports that he goes and stands in the Bactrim and very little urine flows initially. He has to wait 10 15 minutes for the urine flow to start. Admits to incontinence. No fevers or chills. No burning while urination. [facility] Medical History (Updated 05/08/23 @ 10:45 by Dakota Sandoval MD) Depression Social History Household Members: Spouse and Other Household Members Other:: son Housing: House Do you presently have visiting nurse or other home services: No Patient Tobacco Use Status: Former Tobacco user Tobacco use type: Cigarette e-Cigarette/Vaping Use: Never Used Second Hand Smoke Exposure: No service: Yes Sexual orientation: Straight/Heterosexual Physical Exam Vital Signs: Last Vital Signs Temp 97.8 F 05/08/23 10:16 Pulse 74 05/08/23 10:16 BP 118/64 05/08/23 10:16 Pulse Ox 97 05/08/23 10:16 BMI result Body Mass Index 29.3 General: Yes bladder normal to palpation and Yes no CVA tenderness Back/Spine/Pelvis Back: no CVA tenderness Results AMB Urinalysis, Automated UA Leukoctes 0 Jerry/uL Last Edit by Mary Deluca [facility] on 05/08/23 10:11 UA Nitrite Negative Last Edit by Mary Deluca, [facility] on 05/08/23 10:11 UA Urobilinogen 0.2 mg/dL Last Edit by Mary Deluca [facility] on 05/08/23 10:11 UA Protein 0 mg/dL Last Edit by Mary Deluca [facility] on 05/08/23 10:11 UA pH 6.5 Last Edit by Mary Deluca [facility] on 05/08/23 10:11 UA Blood 0 Nelson/uL Last Edit by Mary Deluca [facility] on 05/08/23 10:11 UA Specific Wagoner 1.010 Last Edit by Mary Deluca [facility] on 05/08/23 10:11 UA Ketone Negative Last Edit by Mary Deluca [facility] on 05/08/23 10:11 UA Bilirubin 0 mg/dL Last Edit by Mary Deluca [facility] on 05/08/23 10:11 UA Glucose 0 mg/dL Last Edit by Mary Deluca [facility] on 05/08/23 10:11 Results Reviewed Results Reviewed: Laboratory Last Values Urine pH (Auto) 6.5 05/08/23 10:09 Specific Wagoner (Auto) 1.010 05/08/23 10:09 Urine Protein (Auto) 0 mg/dL 05/08/23 10:09 Glucose (UA)(Auto) 0 mg/dL 05/08/23 10:09 Urine Ketones (Auto) Negative 05/08/23 10:09 Urine Blood (Auto) 0 Nelson/uL 05/08/23 10:09 Urine Nitrite (Auto) Negative 05/08/23 10:09 Urine Bilirubin (Auto) 0 mg/dL 05/08/23 10:09 Urine Urobilinogen (Auto) 0.2 mg/dL 05/08/23 10:09 Leukocyte Esterase (Auto) 0 Jerry/uL 05/08/23 10:09 Assessment & Plan Assessment & Plan (1) Prostatitis: Code(s): N41.9 - Inflammatory disease of prostate, unspecified Plan: Flomax and Cipro called in. Patient was advised to see his primary care provider to get serum PSA levels checked. Orders: Orders AMB Urinalysis Automated Today Z13.9 - Encounter for screening, unspecified Coding Level of Care Code Est Pt Level 4 (31438) Diagnoses Prostatitis N41.9
[2023-05-08 10:16] VITALS: BP 118/64; PULSE 74; TEMP 36.6; O2SAT 97; BMI 29.3
== END 2023-05-08 10:53 | disposition home or self-care (01) ==
PROVIDERS: PCP Physician Assistant Medical; Visit Provider Internal Medicine
DX: N41.9 Inflammatory disease of prostate, unspecified (principal); R39.198 Other difficulties with micturition
CPT/HCPCS: 81003; 99214